=== PATIENT | female | born 1995 | race Caucasian/White ===

== ENCOUNTER 2019-03-08 18:41 | Emergency (ER) | payer SELFPAY ==
[~2019-03-08] VITALS: Ht 172.7 cm; Wt 86.2 kg
[~2019-03-08 18:41] MED LIST: BUSPIRONE HCL10 MG; KLONOPIN0.5 MG PO; LAMICTAL200 MG; SEROQUEL400 MG PO; TYLENOL WITH C1 EACH PO
--- OUTSIDE RECORDS SUMMARY | 2019-03-08 18:44 | XMS REPORT | Summary of Care ---
Author Author [facility] Organization [facility] Address Unknown Phone Unavailable Encounter MARZENA Rollins(NEETA) [id number] Date(s): 05/31/17 - 06/01/17 [facility] [address] [place] [address] [phone] Discharge Diagnosis: Headache Discharge Disposition: Home or Self Care Attending Physician: Leda Acuna DO Vital Signs 1 2 3 Most recent to oldest [Reference Range]: 175.26 cm (05/31/17 10:11 PM) Height 98.2 DegF (06/01/17 4:51 AM) 99.8 DegF *HI* (05/31/17 10:11 PM) Temperature Oral [96.4-99.1 DegF] 122/67 mmHg (06/01/17 4:51 AM) 128/73 mmHg (06/01/17 4:32 AM) 131/70 mmHg (06/01/17 12:30 AM) Blood Pressure [90-140/60-90 mmHg] 16 BRMIN (06/01/17 4:51 AM) 19 BRMIN (06/01/17 4:32 AM) 16 BRMIN (06/01/17 12:30 AM) Respiratory Rate [14-20 BRMIN] 85 bpm (06/01/17 4:51 AM) 89 bpm (06/01/17 4:32 AM) 91 bpm (06/01/17 12:30 AM) Peripheral Pulse Rate [60-100 bpm] 95.455 kg (05/31/17 10:11 PM) Weight 31.08 m2 (05/31/17 10:11 PM) Body Mass Index Problem List No data available for this section Allergies, Adverse Reactions, Alerts Substance Reaction Severity Status NKDA Active Medications dexamethasone 10 mg, Route: IVP, ONCE, Dosing Weight 95.455, kg, Priority: STAT, Start date: 4:04:00 CDT, Stop date: 06/01/17 4:04:00 CDT Start Date: 06/01/17 Stop Date: 06/01/17 Status: Completed diphenhydrAMINE 25 mg, Route: IVP, ONCE, Dosing Weight 95.455, kg, Priority: STAT, Start date: 1:31:00 CDT, Stop date: 06/01/17 1:31:00 CDT Start Date: 06/01/17 Stop Date: 06/01/17 Status: Completed ketOROLAC 15 mg, Route: IVP, Drug form: INJ, ONCE, Dosing Weight 95.455, kg, Priority: STA T, Start date: 06/01/17 2:52:00 CDT, Stop date: 06/01/17 2:52:00 CDT Start Date: 06/01/17 Stop Date: 06/01/17 Status: Completed metoclopramide 10 mg, Route: IVP, Drug form: INJ, ONCE, Dosing Weight 95.455, kg, Priority: STA T, Start date: 06/01/17 1:31:00 CDT, Stop date: 06/01/17 1:31:00 CDT Start Date: 06/01/17 Stop Date: 06/01/17 Status: Completed Saline Flush 0.9% 10 mL, Route: IVP, Drug Form: INJ, Dosing Weight 95.455, kg, PRN, PRN Line Flush , Start date: 05/31/17 22:29:00 CDT, Duration: 30 day, Stop date: 06/30/17 21:28 :00 TRADING ANALYST Notes: (Same as: BD Posiflush) Start Date: 05/31/17 Stop Date: 06/01/17 Status: Discontinued Sodium Chloride 0.9% (Bolus) IV 500 mL, Infuse Over: 1 hr, Route: IV, ONCE, Priority: STAT, Dosing Weight 95.455 kg, Start date: 06/01/17 4:04:00 CDT, Duration: 1 doses or times, Stop date: 4:04:00 CDT Start Date: 06/01/17 Stop Date: 06/01/17 Status: Completed Sodium Chloride 0.9% (Bolus) IV 1,000 mL, Infuse Over: 1 hr, Route: IV, ONCE, Priority: STAT, Dosing Weight 95.4 55 kg, Start date: 06/01/17 1:31:00 CDT, Duration: 1 doses or times, Stop date: 06/01/17 1:31:00 CDT Start Date: 06/01/17 Stop Date: 06/01/17 Status: Completed Results ELECTROLYTES Most recent to 1 oldest [Reference Range]: Sodium Lvl [135-145 138 mEq/L mEq/L] (06/01/17 1:54 AM) Potassium Lvl 3.7 mEq/L [3.5-5.1 mEq/L] (06/01/17 1:54 AM) Chloride Lvl [95-109 106 mEq/L mEq/L] (06/01/17 1:54 AM) CO2 [24-32 mEq/L] 23 mEq/L *LOW* (06/01/17 1:54 AM) AGAP [10.0-20.0 12.7 mEq/L mEq/L] (06/01/17 1:54 AM) CHEM PANEL Most recent to 1 oldest [Reference Range]: Creatinine Lvl 0.71 mg/dL [0.50-1.40 mg/dL] (06/01/17 1:54 AM) eGFR 124 mL/min/1.73m2 1 *NA* (06/01/17 1:54 AM) BUN [7-22 mg/dL] 8 mg/dL (06/01/17 1:54 AM) B/C Ratio [6-25] 11 (06/01/17 1:54 AM) Glucose Lvl [70-99 84 mg/dL mg/dL] (06/01/17 1:54 AM) Total Protein 8.7 g/dL [6.4-8.4 g/dL] *HI* (06/01/17 1:54 AM) Albumin Lvl [3.5-5.0 4.3 g/dL g/dL] (06/01/17 1:54 AM) Globulin [2.7-4.2 4.4 g/dL g/dL] *HI* (06/01/17 1:54 AM) A/G Ratio [0.7-1.6] 1.0 (06/01/17 1:54 AM) Calcium Lvl 9.4 mg/dL [8.5-10.5 mg/dL] (06/01/17 1:54 AM) Magnesium Lvl 2.0 mg/dL [1.8-2.4 mg/dL] (06/01/17 1:54 AM) ALT [0-65 unit/L] 44 unit/L (06/01/17 1:54 AM) AST [0-37 unit/L] 22 unit/L (06/01/17 1:54 AM) Alk Phos [39-136 113 unit/L unit/L] (06/01/17 1:54 AM) Bili Total [0.2-1.3 0.3 mg/dL mg/dL] (06/01/17 1:54 AM) Lipase Lvl [73-393 144 unit/L unit/L] (06/01/17 1:54 AM) 1Result Comment: The eGFR is calculated using the CKD-EPI formula. In most young, healthy individuals the eGFR will be >90 mL/min/1.73m2. The eGFR declines with age. An eGFR of 60-89 may be normal in some populations, particularly the elderly, for whom the CKD-EPI formula has not been extensively validated. Use of the eGFR is not recommended in the following populations: Individuals with unstable creatinine concentrations, including patients and those with serious co-morbid conditions. Patients with extremes in muscle mass or diet. The data above are obtained from the National Kidney Disease Education Program ( NKDEP) which additionally recommends that when the eGFR is used in patients with extremes of body mass index for purposes of drug dosing, the eGFR should be mul tiplied by the estimated BMI. URINE CHEM Most recent to 1 oldest [Reference Range]: U Preg [Negative] Negative (06/01/17 1:07 AM) URINE AND STOOL Most recent to 1 oldest [Reference Range]: UA Turbidity [Clear] Clear (06/01/17 1:07 AM) UA Color Ltyellow *NA* (06/01/17 1:07 AM) UA pH [5.0-8.0] 7.0 (06/01/17 1:07 AM) UA Spec Grav 1.004 [<=1.030] (06/01/17 1:07 AM) UA Glucose [Negative Negative mg/dL mg/dL] *NA* (06/01/17 1:07 AM) UA Blood [Negative] Negative (06/01/17 1:07 AM) UA Ketones [Negative Negative mg/dL mg/dL] *NA* (06/01/17 1:07 AM) UA Protein [Negative Negative mg/dL mg/dL] (06/01/17 1:07 AM) UA Urobilinogen <=1.0 mg/dL [0.1-1.0 mg/dL] *NA* (06/01/17 1:07 AM) UA Bili [Negative] Negative *NA* (06/01/17 1:07 AM) UA Leuk Est Negative [Negative] (06/01/17 1:07 AM) UA Nitrite Negative [Negative] (06/01/17 1:07 AM) UA RBC [0-2 /HPF] 1 /HPF (06/01/17 1:07 AM) UA Sq Epi [Few /LPF] Occasional /LPF *NA* (06/01/17 1:07 AM) HEMATOLOGY Most recent to 1 oldest [Reference Range]: WBC [3.7-10.4 K/CMM] 10.0 K/CMM (06/01/17 1:54 AM) RBC [4.20-5.40 4.94 M/CMM M/CMM] (06/01/17 1:54 AM) Hgb [12.0-16.0 g/dL] 14.0 g/dL (06/01/17 1:54 AM) Hct [36.0-48.0 %] 41.9 % (06/01/17 1:54 AM) MCV [80.0-98.0 fL] 84.8 fL (06/01/17 1:54 AM) MCH [27.0-31.0 pg] 28.4 pg (06/01/17 1:54 AM) MCHC [32.0-36.0 33.5 g/dL g/dL] (06/01/17 1:54 AM) RDW [11.5-14.5 %] 13.8 % (06/01/17 1:54 AM) Platelet [133-450 299 K/CMM K/CMM] (06/01/17 1:54 AM) MPV [7.4-10.4 fL] 8.3 fL (06/01/17 1:54 AM) Segs [45.0-75.0 %] 55.9 % (06/01/17 1:54 AM) Lymphocytes 35.2 % [20.0-40.0 %] (06/01/17 1:54 AM) Monocytes [2.0-12.0 7.0 % %] (06/01/17 1:54 AM) Eosinophils [0.0-4.0 1.1 % %] (06/01/17 1:54 AM) Basophils [0.0-1.0 0.8 % %] (06/01/17 1:54 AM) Segs-Bands # 5.6 K/CMM [1.5-8.1 K/CMM] (06/01/17 1:54 AM) Lymphocytes # 3.5 K/CMM [1.0-5.5 K/CMM] (06/01/17 1:54 AM) Monocytes # [0.0-0.8 0.7 K/CMM K/CMM] (06/01/17 1:54 AM) Eosinophils # 0.1 K/CMM [0.0-0.5 K/CMM] (06/01/17 1:54 AM) Basophils # [0.0-0.2 0.1 K/CMM K/CMM] (06/01/17 1:54 AM) Immunizations No data available for this section Procedures No data available for this section Social History Social History Type Response Smoking Status Never smoker; Exposure to Tobacco Smoke None; Cigarette Smoking Last 365 Days No; Reg Smoking Cessation Counseling No Assessment and Plan No data available for this section
--- OUTSIDE RECORDS SUMMARY | 2019-03-08 18:44 | XMS REPORT | Summary of Care ---
Author Author [facility] Organization [facility] Address Unknown Phone Unavailable Encounter MARZENA Rollins(NEETA) [id number] Date(s): 06/03/17 - 06/04/17 [facility] [address] [place] [address] [phone] Discharge Disposition: Acute Care Attending Physician: Patrick Ayala MD Admitting Physician: Patrick Ayala MD Vital Signs 1 2 3 Most recent to oldest [Reference Range]: 175.26 cm (06/03/17 11:15 PM) 175.26 cm (06/03/17 7:18 PM) Height 98.3 DegF (06/04/17 3:34 PM) 98.3 DegF (06/04/17 10:53 AM) 98.5 DegF (06/04/17 7:19 AM) Temperature Oral [96.4-99.1 DegF] 117/76 mmHg (06/04/17 3:34 PM) 114/79 mmHg (06/04/17 10:53 AM) 118/69 mmHg (06/04/17 7:19 AM) Blood Pressure [90-140/60-90 mmHg] 17 BRMIN (06/04/17 3:34 PM) 17 BRMIN (06/04/17 10:53 AM) 17 BRMIN (06/04/17 7:19 AM) Respiratory Rate [14-20 BRMIN] 89 bpm (06/04/17 3:34 PM) 94 bpm (06/04/17 10:53 AM) 116 bpm *HI* (06/04/17 7:19 AM) Peripheral Pulse Rate [60-100 bpm] 95.455 kg (06/03/17 11:15 PM) 97.727 kg (06/03/17 7:18 PM) Weight 31.08 m2 (06/03/17 11:15 PM) 31.82 m2 (06/03/17 7:18 PM) Body Mass Index Problem List Condition Effective Dates Status Health Status Informant Bipolar Resolved disorder(Confirmed) Blood clot in Resolved abdominal vein(Confirmed) Allergies, Adverse Reactions, Alerts Substance Reaction Severity Status NKDA Active Medications acetaminophen 650 mg, 2 tab, Route: PO, Drug form: TAB, Q4H, Dosing Weight 97.727, kg, PRN Nahid n 1-3/Temp > 99.5 F, Start date: 06/03/17 22:54:00 CDT, Duration: 30 day, Stop date: 07/03/17 22:53:00 GROUP DIRECTOR Notes: Do not exceed 4 gm/day. (Same as: Tylenol) Start Date: 06/03/17 Stop Date: 06/04/17 Status: Discontinued aspirin 325 mg, 1 tab, Route: PO, Drug form: TAB, ONCE, Dosing Weight 97.727, kg, Priori ty: STAT, Start date: 06/03/17 20:47:00 CDT, Stop date: 06/03/17 20:47:00 CDT Notes: Take with food. Start Date: 06/03/17 Stop Date: 06/03/17 Status: Completed aspirin 81 mg tablet, enteric coated 81 mg, 1 tab, Route: PO, Drug form: ECTAB, Daily, Dosing Weight 97.727, kg, Star t date: 06/04/17 9:00:00 CDT, Duration: 30 day, Stop date: 07/03/17 9:00:00 GROUP DIRECTOR Notes: Do not crush or chew.(Same As: Ecotrin) Start Date: 06/04/17 Stop Date: 06/04/17 Status: Discontinued clonazePAM 0.5 mg, 1 tab, Route: PO, Drug form: TAB, BID, Dosing Weight 95.455, kg, PRN Anx iety, Start date: 06/04/17 4:05:00 CDT, Duration: 30 day, Stop date: 07/04/17 4: 04:00 GROUP DIRECTOR Notes: (Same As: KlonoPIN) Start Date: 06/04/17 Stop Date: 06/04/17 Status: Discontinued clonazePAM 0.5 mg, Route: PO, Drug form: TAB, BID, Dosing Weight 95.455, kg, PRN Anxiety, S tart date: 06/04/17 15:24:00 CDT, Duration: 30 day, Stop date: 07/04/17 15:23:00 GROUP DIRECTOR Start Date: 06/04/17 Stop Date: 06/04/17 Status: Deleted clonazePAM 0.5 mg oral tablet 0.5 mg=1 tab, PO, BID, PRN Anxiety, first dose now, 0 Refill(s) Start Date: 06/03/17 Status: Suspended Mylicon 160 mg, 2 tab, Route: CHEW, Drug form: CHEWTAB, TID, Dosing Weight 95.455, kg, P RN Gas, Start date: 06/04/17 10:28:00 CDT, Duration: 30 day, Stop date: 07/04/17 10:27:00 GROUP DIRECTOR Notes: (Same as: Mylicon) Start Date: 06/04/17 Stop Date: 06/04/17 Status: Discontinued [place] 5/325 oral tablet 1 tab, Route: PO, Drug Form: TAB, Dosing Weight 95.455, kg, Q4H, PRN Pain Score 1-3, NOW, Start date: 06/04/17 0:56:00 CDT, Duration: 30 day, Stop date: 7 0:55:00 GROUP DIRECTOR Notes: (Same as: [place] 325/5) Do not exceed 4gm/day of acetaminophen. Start Date: 06/04/17 Stop Date: 06/04/17 Status: Discontinued Saline Flush 0.9% 10 ml, Route: IVP, Drug Form: INJ, Dosing Weight 97.727, kg, PRN, PRN Line Flush , Start date: 06/03/17 22:54:00 CDT, Duration: 30 day, Stop date: 07/03/17 21:53 :00 GROUP DIRECTOR Notes: (Same as: BD Posiflush) Start Date: 06/03/17 Stop Date: 06/04/17 Status: Discontinued Saline Flush 0.9% 10 ml, Route: IVP, Drug Form: INJ, Dosing Weight 97.727, kg, Q12H, Start date: 1 9:00:00 CDT, Duration: 30 day, Stop date: 07/03/17 21:00:00 GROUP DIRECTOR Notes: (Same as: BD Posiflush) Start Date: 06/04/17 Stop Date: 06/04/17 Status: Discontinued Saline Flush 0.9% 10 ml, Route: IVP, Drug Form: INJ, Dosing Weight 97.727, kg, Q12H, Start date: 1 21:00:00 CDT, Duration: 30 day, Stop date: 07/03/17 9:00:00 GROUP DIRECTOR Notes: (Same as: BD Posiflush) Start Date: 06/03/17 Stop Date: 06/04/17 Status: Discontinued Saline Flush 0.9% 10 ml, Route: IVP, Drug Form: INJ, Dosing Weight 97.727, kg, PRN, PRN Line Flush , Start date: 06/03/17 20:18:00 CDT, Duration: 30 day, Stop date: 07/03/17 19:17 :00 GROUP DIRECTOR Start Date: 06/03/17 Stop Date: 06/03/17 Status: Deleted Saline Flush 0.9% 10 mL, Route: IVP, Drug Form: INJ, Dosing Weight 95.455, kg, PRN, PRN Line Flush , Start date: 06/03/17 19:24:00 CDT, Duration: 30 day, Stop date: 07/03/17 18:23 :00 GROUP DIRECTOR Notes: (Same as: BD Posiflush) Start Date: 06/03/17 Stop Date: 06/04/17 Status: Discontinued SEROquel 400 mg, 4 tab, Route: PO, Drug form: TAB, Bedtime, Dosing Weight 95.455, kg, PRN Insomnia, Priority: NOW, Start date: 06/04/17 3:47:00 CDT, Duration: 30 day, St op date: 07/04/17 3:46:00 GROUP DIRECTOR Notes: (Same as: SEROquel) Start Date: 06/04/17 Stop Date: 06/04/17 Status: Discontinued SEROquel 400 mg, 4 tab, Route: PO, Drug form: TAB, Bedtime, Dosing Weight 95.455, kg, Sta rt date: 06/04/17 21:00:00 CDT, Duration: 30 day, Stop date: 07/03/17 21:00:[address] Notes: (Same as: SEROquel) Start Date: 06/04/17 Stop Date: 06/04/17 Status: Canceled SEROquel 400 mg oral tablet 400 mg=1 tab, PO, Bedtime, 0 Refill(s) Start Date: 06/03/17 Status: Suspended Sodium Chloride 0.9% (Bolus) IV 1,000 mL, 1000 ml/hr, Infuse Over: 1 hr, Route: IV, 1,000, Drug form: INJ, ONCE, Priority: STAT, Dosing Weight 97.727 kg, Start date: 06/03/17 19:49:00 CDT, Dur ation: 1 doses or times, Stop date: 06/03/17 19:49:00 CDT Start Date: 06/03/17 Stop Date: 06/03/17 Status: Completed Results ELECTROLYTES Most recent to 1 2 oldest [Reference Range]: Sodium Lvl [135-145 140 mEq/L 140 mEq/L mEq/L] (06/04/17 3:01 AM) (06/03/17 7:45 PM) Potassium Lvl 3.3 mEq/L 3.4 mEq/L [3.5-5.1 mEq/L] *LOW* *LOW* (06/04/17 3:01 AM) (06/03/17 7:45 PM) Chloride Lvl [95-109 110 mEq/L 105 mEq/L mEq/L] *HI* (06/03/17 7:45 PM) (06/04/17 3:01 AM) CO2 [24-32 mEq/L] 18 mEq/L 22 mEq/L *LOW* *LOW* (06/04/17 3:01 AM) (06/03/17 7:45 PM) AGAP [10.0-20.0 15.3 mEq/L 16.4 mEq/L mEq/L] (06/04/17 3:01 AM) (06/03/17 7:45 PM) CHEM PANEL Most recent to 1 2 oldest [Reference Range]: Creatinine Lvl 0.70 mg/dL 0.73 mg/dL [0.50-1.40 mg/dL] (06/04/17 3:01 AM) (06/03/17 7:45 PM) eGFR 126 mL/min/1.73m2 1 120 mL/min/1.73m2 2 *NA* *NA* (06/04/17 3:01 AM) (06/03/17 7:45 PM) BUN [7-22 mg/dL] 6 mg/dL 8 mg/dL *LOW* (06/03/17 7:45 PM) (06/04/17 3:01 AM) B/C Ratio [6-25] 11 (06/03/17 7:45 PM) Glucose Lvl [70-99 124 mg/dL 90 mg/dL mg/dL] *HI* (06/03/17 7:45 PM) (06/04/17 3:01 AM) Total Protein 8.7 g/dL [6.4-8.4 g/dL] *HI* (06/03/17 7:45 PM) Albumin Lvl [3.5-5.0 4.2 g/dL g/dL] (06/03/17 7:45 PM) Globulin [2.7-4.2 4.5 g/dL g/dL] *HI* (06/03/17 7:45 PM) A/G Ratio [0.7-1.6] 0.9 (06/03/17 7:45 PM) Calcium Lvl 8.8 mg/dL 9.5 mg/dL [8.5-10.5 mg/dL] (06/04/17 3:01 AM) (06/03/17 7:45 PM) ALT [0-65 unit/L] 88 unit/L *HI* (06/03/17 7:45 PM) AST [0-37 unit/L] 34 unit/L (06/03/17 7:45 PM) Alk Phos [39-136 113 unit/L unit/L] (06/03/17 7:45 PM) Bili Total [0.2-1.3 0.5 mg/dL mg/dL] (06/03/17 7:45 PM) 1Result Comment: The eGFR is calculated using [...] be mul tiplied by the estimated BMI. 2Result Comment: The eGFR is calculated using the [...] be mul tiplied by the estimated BMI. CARDIAC ENZYMES Most recent to 1 2 oldest [Reference Range]: Total CK [12-191 49 unit/L unit/L] (06/03/17 7:45 PM) CK MB [0.5-3.6 0.5 ng/mL ng/mL] (06/03/17 7:45 PM) CK MB Index 1.0 [0.0-2.5] (06/03/17 7:45 PM) Troponin-I <0.02 ng/mL <0.02 ng/mL [0.00-0.40 ng/mL] (06/04/17 3:01 AM) (06/03/17 7:45 PM) LIPIDS Most recent to 1 2 oldest [Reference Range]: CHD Risk [3.90-5.80] 3.65 *LOW* (06/04/17 3:01 AM) Chol [<=199 mg/dL] 146 mg/dL (06/04/17 3:01 AM) Trig [<=149 mg/dL] 81 mg/dL (06/04/17 3:01 AM) HDL [>=61 mg/dL] 40 mg/dL *LOW* (06/04/17 3:01 AM) LDL (Calculated) 90 mg/dL [<=99 mg/dL] (06/04/17 3:01 AM) VLDL 16 *NA* (06/04/17 3:01 AM) SPECIAL CHEMISTRY Most recent to 1 2 oldest [Reference Range]: Hgb A1C [<=5.6 %] 5.0 % (06/04/17 3:01 AM) DRUG SCREEN Most recent to 1 2 oldest [Reference Range]: U Amph Scr Negative [Negative] *NA* (06/03/17 8:31 PM) U Maya Scr Negative [Negative] *NA* (06/03/17 8:31 PM) U Benzodia Scr Negative [Negative] *NA* (06/03/17 8:31 PM) U Cocaine Scr Negative [Negative] *NA* (06/03/17 8:31 PM) U Opiate Scr Negative [Negative] *NA* (06/03/17 8:31 PM) U Phencyc Scr Negative [Negative] *NA* (06/03/17 8:31 PM) U Cannab Scr Negative [Negative] *NA* (06/03/17 8:31 PM) UDS Note See Note *NA* (06/03/17 8:31 PM) ENDOCRINOLOGY Most recent to 1 2 oldest [Reference Range]: S Preg [Negative] Negative *NA* (06/03/17 7:45 PM) URINE AND STOOL Most recent to 1 2 oldest [Reference Range]: UA Turbidity [Clear] Clear (06/03/17 8:31 PM) UA Color Ltyellow *NA* (06/03/17 8:31 PM) UA pH [5.0-8.0] 6.0 (06/03/17 8:31 PM) UA Spec Grav 1.005 [<=1.030] (06/03/17 8:31 PM) UA Glucose [Negative Negative mg/dL mg/dL] *NA* (06/03/17 8:31 PM) UA Blood [Negative] Moderate *ABN* (06/03/17 8:31 PM) UA Ketones [Negative Trace mg/dL mg/dL] *ABN* (06/03/17 8:31 PM) UA Protein [Negative Negative mg/dL mg/dL] (06/03/17 8:31 PM) UA Urobilinogen <=1.0 mg/dL [0.1-1.0 mg/dL] *NA* (06/03/17 8:31 PM) UA Bili [Negative] Negative *NA* (06/03/17 8:31 PM) UA Leuk Est Negative [Negative] (06/03/17 8:31 PM) UA Nitrite Negative [Negative] (06/03/17 8:31 PM) UA WBC [0-5 /HPF] 2 /HPF (06/03/17 8:31 PM) UA RBC [0-2 /HPF] <1 /HPF (06/03/17 8:31 PM) UA Sq Epi [Few /LPF] Occasional /LPF *NA* (06/03/17 8:31 PM) HEMATOLOGY Most recent to 1 2 oldest [Reference Range]: WBC [3.7-10.4 K/CMM] 12.0 K/CMM *HI* (06/03/17 7:45 PM) RBC [4.20-5.40 4.77 M/CMM M/CMM] (06/03/17 7:45 PM) Hgb [12.0-16.0 g/dL] 13.6 g/dL (06/03/17 7:45 PM) Hct [36.0-48.0 %] 40.4 % (06/03/17 7:45 PM) MCV [80.0-98.0 fL] 84.6 fL (06/03/17 7:45 PM) MCH [27.0-31.0 pg] 28.4 pg (06/03/17 7:45 PM) MCHC [32.0-36.0 33.6 g/dL g/dL] (06/03/17 7:45 PM) RDW [11.5-14.5 %] 13.5 % (06/03/17 7:45 PM) Platelet [133-450 341 K/CMM K/CMM] (06/03/17 7:45 PM) MPV [7.4-10.4 fL] 8.0 fL (06/03/17 7:45 PM) Segs [45.0-75.0 %] 70.5 % (06/03/17 7:45 PM) Lymphocytes 21.0 % [20.0-40.0 %] (06/03/17 7:45 PM) Monocytes [2.0-12.0 7.8 % %] (06/03/17 7:45 PM) Eosinophils [0.0-4.0 0.2 % %] (06/03/17 7:45 PM) Basophils [0.0-1.0 0.5 % %] (06/03/17 7:45 PM) Segs-Bands # 8.5 K/CMM [1.5-8.1 K/CMM] *HI* (06/03/17 7:45 PM) Lymphocytes # 2.5 K/CMM [1.0-5.5 K/CMM] (06/03/17 7:45 PM) Monocytes # [0.0-0.8 0.9 K/CMM K/CMM] *HI* (06/03/17 7:45 PM) Basophils # [0.0-0.2 0.1 K/CMM K/CMM] (06/03/17 7:45 PM) PT [12.0-14.7 13.6 seconds seconds] (06/03/17 7:45 PM) INR [0.85-1.17] 1.04 (06/03/17 7:45 PM) PTT [22.9-35.8 29.5 seconds seconds] (06/03/17 7:45 PM) VIRAL - SEROLOGY Most recent to 1 2 oldest [Reference Range]: Influ A [Negative] Negative (06/03/17 8:31 PM) Influ B [Negative] Negative (06/03/17 8:31 PM) Immunizations No data available for this section Procedures Procedure Date Related Diagnosis Body Site Cholecystectomy Ligament operation Social History Social History Type Response Substance Abuse Use: None. Sexual Sexually active: Yes. Number of lifetime partners 1. Partner with STD? No. Uses condoms: No. History of sexual abuse: No. Sex Mutually Satisfying: Yes. Change in Libido: No. Self Breast Exam No. Menstrual Period Started: No. Exercise Exercise duration: 30. Exercise frequency: Daily. Self assessment: Fair condition. Exercise type: Walking. Employment/School Status: Employed. Alcohol Current, Frequency: 1-2 times per month. Smoking Status Never smoker; Exposure to Tobacco Smoke None; Cigarette Smoking Last 365 Days No; Reg Smoking Cessation Counseling Yes Assessment and Plan Extracted from: Title: Clinical Document Author: Patrick Ayala MD Date: 06/04/17 Progress Note - Daily [facility] Completed: May, 15:26 by Patrick Ayala MD RM: CCDU - 15, SE CCDUWKATINA OBREGON [id number] (: 1995) F Attending: Patrick Ayala MDPhone: Service: Internal Medicine Reason for Admission: BILATERAL LEG WEAKNESS/ N V/ACUTE DIARRHEA Working DRG: Signs & symptoms w/o [facility] Code status: None Specified=FULL CODECurrent diet: Isolation: None Documented Allergies: NKDA SUBJECTIVE OBJECTIVE 24hr Labs 06/04 0301 Gckt283 Trig81 HDL40 L LDL (Calculated)90 VLDL16 CHD Risk3.65 L Troponin-I<0.02 Hgb A1C5.0 Glucose Jki688 H BUN6 L Creatinine Lvl0.70 Sodium Sqr459 Potassium Lvl3.3 L Chloride Jyr166 H CO218 L AGAP15.3 Calcium Lvl8.8 sURH422 06/03 2031 U Amph ScrNegative U Maya ScrNegative U Benzodia ScrNegative U Cannab ScrNegative U Cocaine ScrNegative U Opiate ScrNegative U Phencyc ScrNegative UDS NoteSee Note Influ ANegative Influ BNegative UA ColorLtyellow UA TurbidityClear UA Spec Grav1.005 UA pH6.0 UA ProteinNegative UA GlucoseNegative UA KetonesTrace UA BiliNegative UA BloodModerate UA Urobilinogen<=1.0 UA NitriteNegative UA Leuk EstNegative UA RBC<1 UA WBC2 UA Sq EpiOccasional 06/03 1945 S PregNegative Sodium Guh223 Potassium Lvl3.4 L Chloride Gnz568 CO222 L AGAP16.4 Glucose Lvl90 Creatinine Lvl0.73 BUN8 B/C Ratio11 Total Protein8.7 H Albumin Lvl4.2 Globulin4.5 H A/G Ratio0.9 Calcium Lvl9.5 ALT88 H AST34 Alk Hcyi635 Bili Total0.5 qRCK282 Total CK49 Troponin-I<0.02 CK MB0.5 CK MB Index1.0 WBC12.0 H RBC4.77 Hgb13.6 Hct40.4 MCV84.6 MCH28.4 MCHC33.6 RDW13.5 Hgjdwhgd619 MPV8.0 Segs70.5 Monocytes7.8 Zforvaorxsx71.0 Eosinophils0.2 Basophils0.5 Segs-Bands #8.5 H Lymphocytes #2.5 Monocytes #0.9 H Basophils #0.1 PT13.6 INR1.04 PTT29.5 06/034 POC Performing LocatioSee Note Glucose POC97 [place] still necessary (Yes/No): Line still necessary (Yes/No): VitalsTmp(F)HamymQRDWSpA5ZSX9 06/04 10:5398.245934/107336--- 06/04 07:3412.8097431/733114--- 06/04 03:1597.886084/458617--- 06/04 01:53----70 06/03 23:1898.3---144/3993697 21% 24 Hr Tmax: 99.7F (37.61c) at 06/03 19:18Vital Signs are the last 5 in the past 48 hours. DateWt(kg)Wt(lb)Ht(cm)Ht(in)Method 06/03 (initial) 97.73 215.00Estimated .26 69.00Stated I&ORecordInOutBal 05/2324hr Tot 10 700 -690 05/2224hr Tot 1020 1000 20 Medications (13) Active Scheduled Meds (4): 06/04/17 QUEtiapine (SEROquel) 400 mg PO Bedtime 06/04/17 aspirin (aspirin 81 mg tablet, enteric coated) 81 mg PO Daily 06/03/17 sodium chloride (Saline Flush 0.9%) 10 ml IVP Q12H 06/04/17 sodium chloride (Saline Flush 0.9%) 10 ml IVP Q12H Unscheduled Meds: None PRN Meds (7): 06/04/17 QUEtiapine (SEROquel) 400 mg PO Bedtime 06/04/17 acetaminophen-hydrocodone ([place] 5/325 oral tablet) 1 tab PO Q4H 06/03/17 acetaminophen 650 mg PO Q4H 06/04/17 clonazePAM 0.5 mg PO BID 06/04/17 clonazePAM 0.5 mg PO BID 06/04/17 simethicone (Mylicon) 160 mg CHEW TID 06/03/17 sodium chloride (Saline Flush 0.9%) 10 ml IVP PRN One Time Meds (2): 06/03/17 (Completed) Sodium Chloride 0.9% IV (Sodium Chloride 0.9% (Bolus) IV) 1,000 mL IV ONCE 1000 ml/hr 06/03/17 (Completed) aspirin 325 mg PO ONCE Continuous Infusions: None ASSESSMENT & EXAM PLAN & TREATMENT DIAGNOSES & PROBLEMS [id number] Ready for Discharge (Yes/No)? TEACHING ATTESTATION
--- OUTSIDE RECORDS SUMMARY | 2019-03-08 18:44 | XMS REPORT | Continuity of Care Document ---
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 Phone [employer] [facility] Unavailable Unavailable Problems Problem Status Onset Date Classification Date Reported Comments Source LEG PAIN Active 06/03/2017 [facility] BILATERAL LEG WEAKNESS/ N V/ACUTE DIARRH Active 06/03/2017 [facility] Discharge Diagnosis: Headache 06/01/2017 06/04/2017 [facility] ARM PAIN/ LEG PAIN/ CP Active 05/31/2017 [facility] Bipolar disorder Resolved Problem 06/07/2017 [facility] Blood clot in abdominal vein Resolved Problem 06/07/2017 [facility] WEAKNESS Active [facility] Medications Medication Details Route Status Patient Instructions Ordering Provider Order Date Source Seroquel 400 mg, 4 tab, Route: PO, Drug form: TAB, Bedtime, Dosing Weight 95.455, kg, Start date: 06/04/17 21:00:00 CDT, Duration: 30 day, Stop date: 07/03/17 21:00:00 CSTNotes: (Same as: SEROquel) Inactive 06/05/2017 [facility] Clonazepam 0.5 mg, Route: PO, Drug form: TAB, BID, Dosing Weight 95.455, kg, PRN Anxiety, Start date: 06/04/17 15:24:00 CDT, Duration: 30 day, Stop date: 07/04/17 15:23:00 [employer] Inactive 06/04/2017 [facility] Mylicon 160 mg, 2 tab, Route: CHEW, Drug form: CHEWTAB, TID, Dosing Weight 95.455, kg, PRN Gas, Start date: 06/04/17 10:28:00 CDT, Duration: 30 day, Stop date: 07/04/17 10:27:00 CSTNotes: (Same as: Mylicon) Inactive 06/04/2017 [facility] Saline Flush 0.9% 10 ml, Route: IVP, Drug Form: INJ, Dosing Weight 97.727, kg, Q12H, Start date: 06/04/17 9:00:00 CDT, Duration: 30 day, Stop date: 07/03/17 21:00:00 CSTNotes: (Same as: BD Posiflush) Inactive 06/04/2017 [facility] aspirin 81 mg tablet, enteric coated 81 mg, 1 tab, Route: PO, Drug form: ECTAB, Daily, Dosing Weight 97.727, kg, Start date: 06/04/17 9:00:00 CDT, Duration: 30 day, Stop date: 07/03/17 9:00:00 CSTNotes: Do not crush or chew. (Same As: Ecotrin) Inactive 06/04/2017 [facility] Clonazepam 0.5 mg, 1 tab, Route: PO, Drug form: TAB, BID, Dosing Weight 95.455, kg, PRN Anxiety, Start date: 06/04/17 4:05:00 CDT, Duration: 30 day, Stop date: 07/04/17 4:04:00 CSTNotes: (Same As: KlonoPIN) Inactive 06/04/2017 [facility] Seroquel 400 mg, 4 tab, Route: PO, Drug form: TAB, Bedtime, Dosing Weight 95.455, kg, PRN Insomnia, Priority: NOW, Start date: 06/04/17 3:47:00 CDT, Duration: 30 day, Stop date: 07/04/17 3:46:00 CSTNotes: (Same as: SEROquel) Inactive 06/04/2017 [facility] Acetaminophen 325 MG / Hydrocodone Bitartrate 5 MG Oral Tablet [[place] 5/325] 1 tab, Route: PO, Drug Form: TAB, Dosing Weight 95.455, kg, Q4H, PRN Pain Score 1-3, NOW, Start date: 06/04/17 0:56:00 CDT, Duration: 30 day, Stop date: 07/04/17 0:55:00 CSTNotes: (Same as: [place] 325/5) Do not exceed 4gm/day of acetaminophen. Inactive 06/04/2017 [facility] Saline Flush 0.9% 10 ml, Route: IVP, Drug Form: INJ, Dosing Weight 97.727, kg, PRN, PRN Line Flush, Start date: 06/03/17 22:54:00 CDT, Duration: 30 day, Stop date: 07/03/17 21:53:00 CSTNotes: (Same as: BD Posiflush) No Longer Active 06/04/2017 [facility] Acetaminophen 650 mg, 2 tab, Route: PO, Drug form: TAB, Q4H, Dosing Weight 97.727, kg, PRN Pain 1-3/Temp > 99.5 F, Start date: 06/03/17 22:54:00 CDT, Duration: 30 day, Stop date: 07/03/17 22:53:00 CSTNotes: Do not exceed 4 gm/day. (Same as: Tylenol) No Longer Active 06/04/2017 [facility] clonazePAM 0.5 mg oral tablet 0.5 mg=1 tab, PO, BID, PRN Anxiety, first dose now, 0 Refill(s) On Hold 06/04/2017 [facility] quetiapine 400 MG Oral Tablet [Seroquel] 400 mg=1 tab, PO, Bedtime, 0 Refill(s) On Hold 06/04/2017 [facility] Saline Flush 0.9% 10 ml, Route: IVP, Drug Form: INJ, Dosing Weight 97.727, kg, Q12H, Start date: 06/03/17 21:00:00 CDT, Duration: 30 day, Stop date: 07/03/17 9:00:00 CSTNotes: (Same as: BD Posiflush) No Longer Active 06/04/2017 [facility] Aspirin 325 mg, 1 tab, Route: PO, Drug form: TAB, ONCE, Dosing Weight 97.727, kg, Priority: STAT, Start date: 06/03/17 20:47:00 CDT, Stop date: 06/03/17 20:47:00 CDTNotes: Take with food. Inactive 06/04/2017 [facility] Saline Flush 0.9% 10 ml, Route: IVP, Drug Form: INJ, Dosing Weight 97.727, kg, PRN, PRN Line Flush, Start date: 06/03/17 20:18:00 CDT, Duration: 30 day, Stop date: 07/03/17 19:17:00 [employer] Inactive 06/04/2017 [facility] Sodium Chloride 0.9% (Bolus) IV 1,000 mL, 1000 ml/hr, Infuse Over: 1 hr, Route: IV, 1,000, Drug form: INJ, ONCE, Priority: STAT, Dosing Weight 97.727 kg, Start date: 06/03/17 19:49:00 CDT, Duration: 1 doses or times, Stop date: 06/03/17 19:49:00 CDT Inactive 06/04/2017 [facility] Saline Flush 0.9% 10 mL, Route: IVP, Drug Form: INJ, Dosing Weight 95.455, kg, PRN, PRN Line Flush, Start date: 06/03/17 19:24:00 CDT, Duration: 30 day, Stop date: 07/03/17 18:23:00 CSTNotes: (Same as: BD Posiflush) No Longer Active 06/04/2017 [facility] Sodium Chloride 0.9% (Bolus) IV 500 mL, Infuse Over: 1 hr, Route: IV, ONCE, Priority: STAT, Dosing Weight 95.455 kg, Start date: 06/01/17 4:04:00 CDT, Duration: 1 doses or times, Stop date: 06/01/17 4:04:00 CDT Inactive 06/01/2017 [facility] Dexamethasone 10 mg, Route: IVP, ONCE, Dosing Weight 95.455, kg, Priority: STAT, Start date: 06/01/17 4:04:00 CDT, Stop date: 06/01/17 4:04:00 CDT Inactive 06/01/2017 [facility] Ketorolac 15 mg, Route: IVP, Drug form: INJ, ONCE, Dosing Weight 95.455, kg, Priority: STAT, Start date: 06/01/17 2:52:00 CDT, Stop date: 06/01/17 2:52:00 CDT Inactive 06/01/2017 [facility] Diphenhydramine 25 mg, Route: IVP, ONCE, Dosing Weight 95.455, kg, Priority: STAT, Start date: 06/01/17 1:31:00 CDT, Stop date: 06/01/17 1:31:00 CDT Inactive 06/01/2017 [facility] Metoclopramide 10 mg, Route: IVP, Drug form: INJ, ONCE, Dosing Weight 95.455, kg, Priority: STAT, Start date: 06/01/17 1:31:00 CDT, Stop date: 06/01/17 1:31:00 CDT Inactive 06/01/2017 [facility] Sodium Chloride 0.9% (Bolus) IV 1,000 mL, Infuse Over: 1 hr, Route: IV, ONCE, Priority: STAT, Dosing Weight 95.455 kg, Start date: 06/01/17 1:31:00 CDT, Duration: 1 doses or times, Stop date: 06/01/17 1:31:00 CDT Inactive 06/01/2017 [facility] Saline Flush 0.9% 10 mL, Route: IVP, Drug Form: INJ, Dosing Weight 95.455, kg, PRN, PRN Line Flush, Start date: 05/31/17 22:29:00 CDT, Duration: 30 day, Stop date: 06/30/17 21:28:00 CSTNotes: (Same as: BD Posiflush) No Longer Active 06/01/2017 [facility] Allergies, Adverse Reactions, Alerts No Known Medication Allergies Immunizations No Data Provided for This Section Results Order Name Results Value Reference Range Date Interpretation Comments Source CARDIAC ENZYMES Troponin-I <0.02 0.00 - 0.40 06/04/2017 [facility] CHEM PANEL eGFR 126 06/04/2017 Result Comment: The eGFR is calculated using the [...] from the National Kidney Disease Education Program (NKDEP) which additionally recommends that when the eGFR is used in patients with extremes of body mass index for purposes of drug dosing, the eGFR should be multiplied by the estimated BMI. [facility] CHEM PANEL Chloride Lvl 110 95 - 109 06/04/2017 [facility] CHEM PANEL CO2 18 24 - 32 06/04/2017 [facility] CHEM PANEL Potassium Lvl 3.3 3.5 - 5.1 06/04/2017 [facility] CHEM PANEL Sodium Lvl 140 135 - 145 06/04/2017 [facility] CHEM PANEL Calcium Lvl 8.8 8.5 - 10.5 06/04/2017 [facility] CHEM PANEL AGAP 15.3 10.0 - 20.0 06/04/2017 [facility] CHEM PANEL Creatinine Lvl 0.70 0.50 - 1.40 06/04/2017 [facility] CHEM PANEL BUN 6 7 - 22 06/04/2017 [facility] CHEM PANEL Glucose Lvl 124 70 - 99 06/04/2017 [facility] LIPIDS LDL (Calculated) 90 <=99 mg/dL 06/04/2017 [facility] LIPIDS VLDL 16 06/04/2017 [facility] LIPIDS Trig 81 <=149 mg/dL 06/04/2017 [facility] LIPIDS Chol 146 <=199 mg/dL 06/04/2017 [facility] LIPIDS HDL 40 >=61 mg/dL 06/04/2017 [facility] LIPIDS CHD Risk 3.65 3.90 - 5.80 06/04/2017 [facility] SPECIAL CHEMISTRY Hgb A1C 5.0 <=5.6 % 06/04/2017 [facility] DRUG SCREEN UDS Note See Note *NA* (06/03/17 8:31 PM) 06/04/2017 [facility] DRUG SCREEN U Benzodia Scr Negative *NA* (06/03/17 8:31 PM) Negative 06/04/2017 [facility] DRUG SCREEN U Maya Scr Negative *NA* (06/03/17 8:31 PM) Negative 06/04/2017 [facility] DRUG SCREEN U Amph Scr Negative *NA* (06/03/17 8:31 PM) Negative 06/04/2017 [facility] DRUG SCREEN U Phencyc Scr Negative *NA* (06/03/17 8:31 PM) Negative 06/04/2017 [facility] DRUG SCREEN U Cocaine Scr Negative *NA* (06/03/17 8:31 PM) Negative 06/04/2017 [facility] DRUG SCREEN U Cannab Scr Negative *NA* (06/03/17 8:31 PM) Negative 06/04/2017 [facility] DRUG SCREEN U Opiate Scr Negative *NA* (06/03/17 8:31 PM) Negative 06/04/2017 [facility] URINE AND STOOL UA Urobilinogen <=1.0 mg/dL 0.1 - 1.0 06/04/2017 [facility] URINE AND STOOL UA Color Ltyellow 06/04/2017 [facility] URINE AND STOOL UA RBC <1 0 - 2 06/04/2017 [facility] URINE AND STOOL UA WBC 2 0 - 5 06/04/2017 [facility] URINE AND STOOL UA Sq Epi Occasional /LPF Few /LPF 06/04/2017 [facility] URINE AND STOOL UA Blood Moderate *ABN* (06/03/17 8:31 PM) Negative 06/04/2017 [facility] URINE AND STOOL UA Bili Negative *NA* (06/03/17 8:31 PM) Negative 06/04/2017 [facility] URINE AND STOOL UA Leuk Est Negative (06/03/17 8:31 PM) Negative 06/04/2017 [facility] URINE AND STOOL UA Nitrite Negative (06/03/17 8:31 PM) Negative 06/04/2017 [facility] URINE AND STOOL UA Turbidity Clear (06/03/17 8:31 PM) Clear 06/04/2017 [facility] URINE AND STOOL UA Ketones Trace mg/dL Negative mg/dL 06/04/2017 [facility] URINE AND STOOL UA Spec Grav 1.005 <=1.030 06/04/2017 [facility] URINE AND STOOL UA Glucose Negative mg/dL Negative mg/dL 06/04/2017 [facility] URINE AND STOOL UA Protein Negative mg/dL Negative mg/dL 06/04/2017 [facility] URINE AND STOOL UA pH 6.0 5.0 - 8.0 06/04/2017 [facility] VIRAL - SEROLOGY Influ B Negative (06/03/17 8:31 PM) Negative 06/04/2017 [facility] VIRAL - SEROLOGY Influ A Negative (06/03/17 8:31 PM) Negative 06/04/2017 [facility] CARDIAC ENZYMES CK MB Index 1.0 0.0 - 2.5 06/04/2017 [facility] CARDIAC ENZYMES Troponin-I <0.02 0.00 - 0.40 06/04/2017 [facility] CARDIAC ENZYMES Total CK 49 12 - 191 06/04/2017 [facility] CARDIAC ENZYMES CK MB 0.5 0.5 - 3.6 06/04/2017 [facility] CHEM PANEL eGFR 120 06/04/2017 Result Comment: The eGFR is calculated using the [...] from the National Kidney Disease Education Program (NKDEP) which additionally recommends that when the eGFR is used in patients with extremes of body mass index for purposes of drug dosing, the eGFR should be multiplied by the estimated BMI. [facility] CHEM PANEL B/C Ratio 11 6 - 25 06/04/2017 [facility] CHEM PANEL A/G Ratio 0.9 0.7 - 1.6 06/04/2017 [facility] CHEM PANEL Globulin 4.5 2.7 - 4.2 06/04/2017 [facility] CHEM PANEL BUN 8 7 - 22 06/04/2017 [facility] CHEM PANEL Glucose Lvl 90 70 - 99 06/04/2017 [facility] CHEM PANEL Sodium Lvl 140 135 - 145 06/04/2017 [facility] CHEM PANEL Creatinine Lvl 0.73 0.50 - 1.40 06/04/2017 [facility] CHEM PANEL Potassium Lvl 3.4 3.5 - 5.1 06/04/2017 [facility] CHEM PANEL ALT 88 0 - 65 06/04/2017 [facility] CHEM PANEL Calcium Lvl 9.5 8.5 - 10.5 06/04/2017 [facility] CHEM PANEL CO2 22 24 - 32 06/04/2017 [facility] CHEM PANEL Total Protein 8.7 6.4 - 8.4 06/04/2017 [facility] CHEM PANEL Chloride Lvl 105 95 - 109 06/04/2017 [facility] CHEM PANEL Albumin Lvl 4.2 3.5 - 5.0 06/04/2017 [facility] CHEM PANEL AGAP 16.4 10.0 - 20.0 06/04/2017 [facility] CHEM PANEL Bili Total 0.5 0.2 - 1.3 06/04/2017 [facility] CHEM PANEL Alk Phos 113 39 - 136 06/04/2017 [facility] CHEM PANEL AST 34 0 - 37 06/04/2017 [facility] ENDOCRINOLOGY S Preg Negative *NA* (06/03/17 7:45 PM) Negative 06/04/2017 [facility] HEMATOLOGY Basophils # 0.1 0.0 - 0.2 06/04/2017 [facility] HEMATOLOGY Lymphocytes # 2.5 1.0 - 5.5 06/04/2017 [facility] HEMATOLOGY Monocytes # 0.9 0.0 - 0.8 06/04/2017 [facility] HEMATOLOGY Basophils 0.5 0.0 - 1.0 06/04/2017 [facility] HEMATOLOGY Segs-Bands # 8.5 1.5 - 8.1 06/04/2017 [facility] HEMATOLOGY Monocytes 7.8 2.0 - 12.0 06/04/2017 [facility] HEMATOLOGY Eosinophils 0.2 0.0 - 4.0 06/04/2017 [facility] HEMATOLOGY Lymphocytes 21.0 20.0 - 40.0 06/04/2017 [facility] HEMATOLOGY Segs 70.5 45.0 - 75.0 06/04/2017 [facility] MCV 84.6 80.0 - 98.0 06/04/2017 [facility] MCHC 33.6 32.0 - 36.0 06/04/2017 [facility] MCH 28.4 27.0 - 31.0 06/04/2017 [facility] Hgb 13.6 12.0 - 16.0 06/04/2017 [facility] Hct 40.4 36.0 - 48.0 06/04/2017 [facility] RBC 4.77 4.20 - 5.40 06/04/2017 [facility] MPV 8.0 7.4 - 10.4 06/04/2017 [facility] HEMATOLOGY Platelet 341 133 - 450 06/04/2017 [facility] HEMATOLOGY RDW 13.5 11.5 - 14.5 06/04/2017 [facility] WBC 12.0 3.7 - 10.4 06/04/2017 [facility] PTT 29.5 22.9 - 35.8 06/04/2017 [facility] HEMATOLOGY INR 1.04 0.85 - 1.17 06/04/2017 [facility] HEMATOLOGY PT 13.6 12.0 - 14.7 06/04/2017 [facility] CHEM PANEL Lipase Lvl 144 73 - 393 06/01/2017 [facility] CHEM PANEL Magnesium Lvl 2.0 1.8 - 2.4 06/01/2017 [facility] CHEM PANEL eGFR 124 06/01/2017 Result Comment: The eGFR is calculated using the [...] from the National Kidney Disease Education Program (NKDEP) which additionally recommends that when the eGFR is used in patients with extremes of body mass index for purposes of drug dosing, the eGFR should be multiplied by the estimated BMI. [facility] CHEM PANEL Bili Total 0.3 0.2 - 1.3 06/01/2017 [facility] CHEM PANEL AST 22 0 - 37 06/01/2017 [facility] CHEM PANEL Alk Phos 113 39 - 136 06/01/2017 [facility] CHEM PANEL Chloride Lvl 106 95 - 109 06/01/2017 [facility] CHEM PANEL Potassium Lvl 3.7 3.5 - 5.1 06/01/2017 [facility] CHEM PANEL CO2 23 24 - 32 06/01/2017 [facility] CHEM PANEL Total Protein 8.7 6.4 - 8.4 06/01/2017 [facility] CHEM PANEL Calcium Lvl 9.4 8.5 - 10.5 06/01/2017 [facility] CHEM PANEL ALT 44 0 - 65 06/01/2017 [facility] CHEM PANEL Albumin Lvl 4.3 3.5 - 5.0 06/01/2017 [facility] CHEM PANEL Glucose Lvl 84 70 - 99 06/01/2017 [facility] CHEM PANEL Creatinine Lvl 0.71 0.50 - 1.40 06/01/2017 [facility] CHEM PANEL Sodium Lvl 138 135 - 145 06/01/2017 [facility] CHEM PANEL BUN 8 7 - 22 06/01/2017 [facility] CHEM PANEL A/G Ratio 1.0 0.7 - 1.6 06/01/2017 [facility] CHEM PANEL B/C Ratio 11 6 - 25 06/01/2017 [facility] CHEM PANEL Globulin 4.4 2.7 - 4.2 06/01/2017 [facility] CHEM PANEL AGAP 12.7 10.0 - 20.0 06/01/2017 [facility] HEMATOLOGY Basophils # 0.1 0.0 - 0.2 06/01/2017 [facility] HEMATOLOGY Monocytes # 0.7 0.0 - 0.8 06/01/2017 [facility] HEMATOLOGY Eosinophils # 0.1 0.0 - 0.5 06/01/2017 [facility] HEMATOLOGY Lymphocytes 35.2 20.0 - 40.0 06/01/2017 [facility] HEMATOLOGY Eosinophils 1.1 0.0 - 4.0 06/01/2017 [facility] HEMATOLOGY Basophils 0.8 0.0 - 1.0 06/01/2017 [facility] HEMATOLOGY Lymphocytes # 3.5 1.0 - 5.5 06/01/2017 [facility] HEMATOLOGY Monocytes 7.0 2.0 - 12.0 06/01/2017 [facility] HEMATOLOGY Segs-Bands # 5.6 1.5 - 8.1 06/01/2017 [facility] HEMATOLOGY Segs 55.9 45.0 - 75.0 06/01/2017 [facility] HEMATOLOGY MPV 8.3 7.4 - 10.4 06/01/2017 [facility] HEMATOLOGY WBC 10.0 3.7 - 10.4 06/01/2017 [facility] HEMATOLOGY RBC 4.94 4.20 - 5.40 06/01/2017 [facility] HEMATOLOGY Hgb 14.0 12.0 - 16.0 06/01/2017 [facility] HEMATOLOGY MCV 84.8 80.0 - 98.0 06/01/2017 [facility] HEMATOLOGY Platelet 299 133 - 450 06/01/2017 [facility] HEMATOLOGY Hct 41.9 36.0 - 48.0 06/01/2017 [facility] HEMATOLOGY RDW 13.8 11.5 - 14.5 06/01/2017 [facility] HEMATOLOGY MCH 28.4 27.0 - 31.0 06/01/2017 [facility] MCHC 33.5 32.0 - 36.0 06/01/2017 [facility] URINE AND STOOL UA Color Ltyellow 06/01/2017 [facility] URINE AND STOOL UA Urobilinogen <=1.0 mg/dL 0.1 - 1.0 06/01/2017 [facility] URINE AND STOOL UA Blood Negative (06/01/17 1:07 AM) Negative 06/01/2017 [facility] URINE AND STOOL UA Nitrite Negative (06/01/17 1:07 AM) Negative 06/01/2017 [facility] URINE AND STOOL UA Leuk Est Negative (06/01/17 1:07 AM) Negative 06/01/2017 [facility] URINE AND STOOL UA Ketones Negative mg/dL Negative mg/dL 06/01/2017 [facility] URINE AND STOOL UA Bili Negative *NA* (06/01/17 1:07 AM) Negative 06/01/2017 [facility] URINE AND STOOL UA RBC 1 0 - 2 06/01/2017 [facility] URINE AND STOOL UA Sq Epi Occasional /LPF Few /LPF 06/01/2017 [facility] URINE AND STOOL UA Turbidity Clear (06/01/17 1:07 AM) Clear 06/01/2017 [facility] URINE AND STOOL UA Spec Grav 1.004 <=1.030 06/01/2017 [facility] URINE AND STOOL UA pH 7.0 5.0 - 8.0 06/01/2017 [facility] URINE AND STOOL UA Protein Negative mg/dL Negative mg/dL 06/01/2017 [facility] URINE AND STOOL UA Glucose Negative mg/dL Negative mg/dL 06/01/2017 [facility] URINE CHEM U Preg Negative (06/01/17 1:07 AM) Negative 06/01/2017 [facility] Pathology Reports No Data Provided for This Section Diagnostic Reports Report Value Date Source Brain w/wo contrast MRI EXAM: MRI BRAIN WITH AND WITHOUT CONTRAST DATE: 06/03/2017 8:15 PM CDT INDICATION: Lower extremity numbness and weakness. COMPARISON: CT brain dated 06/03/2017. TECHNIQUE: Multiplanar, multisequence MRI imaging of the brain was acquired with and without intravenous contrast. A total of 19 mL Dotarem was administered intravenously. FINDINGS: No acute intracranial hemorrhage, midline shift, or mass effect is identified. The ventricles and sulci are within normal limits, without evidence for hydrocephalus. No evidence for restricted diffusion is present to suggest an acute infarct. There is no abnormal gradient susceptibility artifact or intracranial enhancement. The orbits, paranasal sinuses, and mastoid air cells are unremarkable. The major intracranial flow voids are maintained. IMPRESSION: Unremarkable MRI of the brain. SL: [id number] 06/03/2017 [facility] Carotid artery Doppler bilat US Patient Name: KATINA MELGAR : 1995; Age: 21 years Female MR: [id number] Study: Carotid artery Doppler bilat US 06/03/2017 8:15 PM CDT CLINICAL INDICATION: - tia. COMPARISON: None TECHNIQUE: Dinero-scale, color Doppler and spectral Doppler of the carotid arteries was performed. Any reported ICA stenoses indirectly references the distal internal carotid diameter as the denominator for the stenosis measurement, utilizing consensus panel criteria. FINDINGS: RIGHT: No significant plaque. ICA PSV 96 cm/sec CCA PSV 123 cm/sec ICA/CCA ratio 0.7 Vertebral flow is antegrade. External carotid artery is patent. LEFT: No significant plaque. ICA PSV 109 cm/sec CCA PSV 119 cm/sec ICA/CCA ratio 0.9 Vertebral flow is antegrade. External carotid artery is patent. IMPRESSION: RIGHT: ICA stenosis <50% by velocity criteria. LEFT: ICA stenosis <50% by velocity criteria. Consensus panel Doppler US criteria for diagnosis of ICA stenosis: Stenosis (%) ICA PSV (cm/sec) ICA/CCA ratio <50 <125 <2.0 50-69 125-230 2.0-4.0 >70 but less than >230 >4.0 near occlusion Near occlusion High, low, or Variable undetectable SL: ARAM 06/03/2017 [facility] Chest 1view DX Patient Name: KATINA MELGAR : 1995; Age: 21 years Female MR: [id number] Study: Chest 1view DX Order Time: 06/03/2017 7:24 PM CDT CLINICAL INDICATION: - cp COMPARISON: Chest radiograph on 06/01/2017 FINDINGS: Lines: None. Lungs: The lungs are grossly clear. Mediastinum: The cardiac silhouette is within normal limits of size. Midline trachea. Bones and soft tissues: No acute abnormalities. IMPRESSION: No acute cardiopulmonary abnormalities. SL: ARAM 06/03/2017 [facility] Brain Stroke wo contrast CT Study: Brain Stroke wo contrast CT 06/03/2017 7:24 PM CDT Ordering Physician: Surjit Gomez Clinical Indication: ct dlp: 901.26mgy/cm. - weakness, collapsed at work, difficulty walking, saying 'my heart hurts' and SOB, bilateral leg numbness Comparison: June 01, 2017 TECHNIQUE: CT images are obtained from the foramen magnum to the vertex on a multidetector CT. Sagittal and coronal reformats are acquired. CT radiation dose DLP: 901 mGy-cm. FINDINGS: Ventricles, sulci and basal cisterns are within normal limits for age. The dinero- white junction is intact. No encephalomalacic changes are seen. There is no evidence for intracranial mass, mass effect or extra-axial fluid collection. There is no evidence for intracranial hemorrhage. The skull is intact. Visualized paranasal sinuses are clear. Mastoid air cells are clear. Orbital structures are grossly unremarkable. IMPRESSION: Normal computed tomography scan of the brain without contrast, unchanged as compared to the study performed 2 days earlier. MRI of the brain may be helpful in further assessment. Findings have been communicated by telephone to Surjit Gomez, in the emergency department, at 7:48 PM on 06/03/2017. SL: [id number] 06/03/2017 [facility] Chest 2 views DX Study: CHEST, PA AND LATERAL Clinical Indication: - chest pain; Comparison: None FINDINGS: The heart and mediastinum are normal. The lungs are moderately inflated. No infiltrate, vascular congestion or pleural effusion is seen. There is minimal thoracic dextroscoliosis. IMPRESSION: No acute abnormality. SL: [id number] 06/01/2017 [facility] Brain wo contrast CT CT BRAIN WITHOUT CONTRAST INDICATION: Headache with dizziness, ct dlp; 981.69mGy-cm, - headache and dizziness--Multiple complaints. Pt reports palpitations, headache w photophobia, all extremity numbness x 3 days, N/V/D. Denies PMH. COMPARISON: None DISCUSSION: There is no evidence of acute vascular insults, space occupying lesions, hemorrhage, hydrocephalus, midline shift, or extra-axial fluid collections. The calvarium is intact. IMPRESSION: No acute intracranial abnormalities are visualized. SL:16 06/01/2017 [facility] Consultation Notes No Data Provided for This Section Discharge Summaries No Data Provided for This Section History and Physicals No Data Provided for This Section Vital Signs Vital Sign Value Date Comments Source Respitory Rate 17 06/04/2017 [facility] Temperature Oral (F) 98.3 F 06/04/2017 [facility] Heart Rate 89 06/04/2017 [facility] Systolic (mm Hg) 117 06/04/2017 [facility] Diastolic (mm Hg) 76 06/04/2017 [facility] Heart Rate 94 06/04/2017 [facility] Respitory Rate 17 06/04/2017 [facility] Systolic (mm Hg) 114 06/04/2017 [facility] Diastolic (mm Hg) 79 06/04/2017 [facility] Temperature Oral (F) 98.3 F 06/04/2017 [facility] Temperature Oral (F) 98.5 F 06/04/2017 [facility] Heart Rate 116 06/04/2017 [facility] Respitory Rate 17 06/04/2017 [facility] Systolic (mm Hg) 118 06/04/2017 [facility] Diastolic (mm Hg) 69 06/04/2017 [facility] Height 175.26 cm 06/04/2017 [facility] Weight 95.455 06/04/2017 [facility] BMI Calculated 31.08 06/04/2017 [facility] Weight 97.727 06/04/2017 [facility] BMI Calculated 31.82 06/04/2017 [facility] Height 175.26 cm 06/04/2017 [facility] Temperature Oral (F) 98.2 F 06/01/2017 [facility] Systolic (mm Hg) 122 06/01/2017 [facility] Diastolic (mm Hg) 67 06/01/2017 [facility] Respitory Rate 16 06/01/2017 [facility] Heart Rate 85 06/01/2017 [facility] Systolic (mm Hg) 128 06/01/2017 [facility] Diastolic (mm Hg) 73 06/01/2017 [facility] Heart Rate 89 06/01/2017 [facility] Respitory Rate 19 06/01/2017 [facility] Systolic (mm Hg) 131 06/01/2017 [facility] Diastolic (mm Hg) 70 06/01/2017 [facility] Heart Rate 91 06/01/2017 [facility] Respitory Rate 16 06/01/2017 [facility] Temperature Oral (F) 99.8 F 06/01/2017 [facility] Weight 95.455 06/01/2017 [facility] Height 175.26 cm 06/01/2017 [facility] BMI Calculated 31.08 06/01/2017 [facility] Encounters Location Location Details Encounter Type Encounter Number Reason For Visit Attending Provider ADM Date DC Date Status Source [facility] Emergency [id number] Leda De Jesusooqi 06/01/2017 06/01/2017 [facility] Inpatient [id number] Patrick Ayala 06/03/2017 06/04/2017 [facility] Procedures Procedure Code Date Perfomer Comments Source Cholecystectomy [id number] [facility] Ligament operation [id number] [facility] Assessment and Plan Assessment and Plan Date Source Extracted from:Title: Clinical Document Author: Patrick Ayala MD Date: 06/04/17 Progress Note - Daily [facility] Completed: Sunday, JUN 04, 2017, 15:26 by Patrick Ayala MD RM: CCDU - 15, SE [facility]U KATINA MELGAR 21y (: 1995) F Attending: Patrick Ayala MD Service: Internal Medicine Reason for Admission: BILATERAL LEG WEAKNESS/ N V/ACUTE DIARRHEA Working DRG: Signs and symptoms w/[place] [facility] [place] status: None Specified=FULL CODE Current diet: Isolation: None Documented Allergies: NKDA SUBJECTIVE OBJECTIVE 24hr Labs 06/04 0301 Chol 146 Trig 81 HDL 40 L LDL (Calculated) 90 VLDL 16 CHD Risk 3.65 L Troponin-I <0.02 Hgb A1C 5.0 Glucose Lvl 124 H BUN 6 L Creatinine Lvl 0.70 Sodium Lvl 140 Potassium Lvl 3.3 L Chloride Lvl 110 H CO2 18 L AGAP 15.3 Calcium Lvl 8.8 eGFR 126 06/03 2031 U Amph Scr Negative U Maya Scr Negative U Benzodia Scr Negative U Cannab Scr Negative U Cocaine Scr Negative U Opiate Scr Negative U Phencyc Scr Negative UDS Note See Note Influ A Negative Influ B Negative UA Color Ltyellow UA Turbidity Clear UA Spec Grav 1.005 UA pH 6.0 UA Protein Negative UA Glucose Negative UA Ketones Trace UA Bili Negative UA Blood Moderate UA Urobilinogen <=1.0 UA Nitrite Negative UA Leuk Est Negative UA RBC <1 UA WBC 2 UA Sq Epi Occasional 06/03 1945 S Preg Negative Sodium Lvl 140 Potassium Lvl 3.4 L Chloride Lvl 105 CO2 22 L AGAP 16.4 Glucose Lvl 90 Creatinine Lvl 0.73 BUN 8 B/C Ratio 11 Total Protein 8.7 H Albumin Lvl 4.2 Globulin 4.5 H A/G Ratio 0.9 Calcium Lvl 9.5 ALT 88 H AST 34 Alk Phos 113 Bili Total 0.5 eGFR 120 Total CK 49 Troponin-I <0.02 CK MB 0.5 CK MB Index 1.0 WBC 12.0 H RBC 4.77 Hgb 13.6 Hct 40.4 MCV 84.6 MCH 28.4 MCHC 33.6 RDW 13.5 Platelet 341 MPV 8.0 Segs 70.5 Monocytes 7.8 Lymphocytes 21.0 Eosinophils 0.2 Basophils 0.5 Segs-Bands # 8.5 H Lymphocytes # 2.5 Monocytes # 0.9 H Basophils # 0.1 PT 13.6 INR 1.04 PTT 29.5 06/034 POC Performing Locatio See Note Glucose POC 97 [place] still necessary (Yes/No): Line still necessary (Yes/No): Vitals Tmp(F) Pulse BP RR SpO2 FIO2 06/04 10:53 98.3 94 114/79 17 96 --- 06/04 07:19 98.5 116 118/69 17 98 --- 06/04 03:15 97.8 94 134/83 16 97 --- 06/04 01:53 ---- 70 ----- -- --- --- 06/03 23:18 98.3 --- 144/78 16 100 21% 24 Hr Tmax: 99.7F (37.61c) at 06/03 19:18 Vital Signs are the last 5 in the past 48 hours. Date Wt(kg) Wt(lb) Ht(cm) Ht(in) Method 06/03 (initial) 97.73 215.00 Estimated 06/03 175.26 69.00 Stated I&O Record In Out Bal 06/04 24hr Tot 10 700 -690 06/03 24hr Tot 1020 1000 20 Medications (13) Active [...] (SEROquel) 400 mg PO Bedtime 06/04/17 acetaminophen-hydrocodone ([place] 5/325 oral tablet) 1 tab PO Q4H [...] mg PO ONCE Continuous Infusions: None ASSESSMENT and EXAM PLAN and TREATMENT DIAGNOSES and PROBLEMS [id number] Ready for Discharge (Yes/No)? TEACHING ATTESTATION 06/04/2017 [facility] Plan of Care No Data Provided for This Section Social History Social History Date Source Social History TypeResponse Substance Abuse Use: None. Sexual Sexually active: [...] Days No; Reg Smoking Cessation Counseling Yes 06/04/2017 [facility] Family History No Data Provided for This Section Advance Directives No Data Provided for This Section Functional Status No Data Provided for This Section
--- OUTSIDE RECORDS SUMMARY | 2019-03-08 18:45 | XMS REPORT ---
Author [facility] Address Unknown Phone Unavailable Care Team Providers Care Leasing Property Manager Name Role Phone Unavailable Unavailable Payers Payer Name Policy Type Policy Number Effective Date Expiration Date Problems This patient has no known problems. Allergies, Adverse Reactions, Alerts Allergy Name Allergy Type Status Severity Reaction(s) Onset Date Inactive Date Treating Clinician Comments No Known Allergies DA Active U 2018-10-16 00:00:00 No Known Allergies DA Active U 2018-10-08 00:00:00 No Known Allergies DA Active U 2017-12-13 00:00:00 Medications This patient has no known medications. Results Test Description Test Time Test Comments Text Results Atomic Results Result Comments - CT HEAD/BRAIN W/O CONT 2019-03-08 14:11:00 Name: KATINA MELGAR Jessica [facility] : 1995 Age/S: 23 / F [address] Unit #: [id number] Loc: [place] [address] Phys: Scar Ferraro ENGINE LATHE TENDER Acct: [id number] Dis Date: Status: REG ER PHONE #: [phone] Exam Date: 03/08/2019 1305 FAX #: [phone] Reason: POSS LOC EXAMS: CPT CODE: [id number] CT HEAD/BRAIN W/O CONT 41138 HISTORY: POSS LOC TECHNIQUE: Noncontrast 2.[address] of the head. Examination acquired within 24 hours of arrival. Automated exposure control for dose reduction. COMPARISON: Noncontrast CT brain December 13, 2017 FINDINGS: No acute hemorrhage. No intracranial mass, mass effect, or midline shift. No CT evidence of acute infarct. Dinero-white matter differentiation is preserved. No hydrocephalus. No extra-axial fluid collection. Visualized paranasal sinuses are clear. Mastoid air cells and middle ear cavities are clear. Orbital contents are unremarkable. Calvarium and skull base are intact. IMPRESSION: Negative CT head. at 1411 Reported and signed by: Ilir collado MD CC: Scar Ferraro ENGINE LATHE TENDER; Tyree Cleaning DO Technologist:Dulce Maria Horne RT(R),CT CTDI: DLP: Trnscb Date/Time: 03/08/2019 (1411) [email or web address] Orig Print D/T: S: 03/08/2019 (4116) PAGE 1 Signed Report URINALYSIS COMPLETE 2019-03-08 13:12:00 UA COLOR (test code=COLU) Light-Yellow YELLOW UA APPEARANCE (test code=APPU) CLEAR CLEAR UA GLUCOSE DIPSTICK (test code=DGLUU) NEGATIVE mg/dL NEGATIVE UA BILIRUBIN DIPSTICK (test code=BILU) NEGATIVE mg/dL NEGATIVE UA KETONE DIPSTICK (test code=KETU) NEGATIVE mg/dL NEGATIVE UA SPECIFIC GRAVITY (test code=SGU) 1.013 1.001-1.035 UA BLOOD DIPSTICK (test code=MARIETTA) Negative mg/dL NEGATIVE UA PH DIPSTICK (test code=RODOLFO) 6.0 5.0-8.0 UA PROTEIN DIPSTICK (test code=PROU) NEGATIVE mg/dL NEGATIVE UA UROBILINIOGEN DIPSTICK (test code=URO) Normal mg/dL NEGATIVE UA NITRITE DIPSTICK (test code=RACHELLE) NEGATIVE NEGATIVE UA LEUKOCYTE ESTERASE W REFLEX (test code=LEUUR) NEGATIVE Boyd/uL NEGATIVE UA WBC (test code=WBCU) 0-5 per HPF 0-5 UA RBC (test code=RBCU) 0-2 #/HPF 0-5 UA EPITHELIAL CELLS (test code=EPIU) FEW per HPF FEW UA BACTERIA (test code=BACU) FEW #/HPF NONE UA MUCUS (test code=MUCU) FEW #/LPF FEW Urine Source? Clean CatchDRUGS OF ABUSE SCREEN [id number] 13:12:00* Test Item Value Reference Range Comments URN COCAINE (test code=COCAURN) NEGATIVE <300 ng/mL URN CANNABINOIDS (test code=CANNABURN) NEGATIVE <50 ng/mL URN AMPHETAMINE (test code=AMPHETURN) NEGATIVE <1000 ng/mL URN BARBITURATE (test code=BARBITURN) POSITIVE <200 ng/mL This test provides only a preliminary test result. A morespecific alternate chemical method must be used in order toobtain a confirmed analytical result. Gas chromatography/mass spectrometry (GC/MS) is thepreferred confirmatory method. Other chemical confirmationmethods are available. Clinical consideration and professional judgment should be applied to any drug of abusetest result, particularly when preliminary positive resultsare used.Unconfirmed screening results must not be used fornon-medical purposes (e.g., employment testing, legaltesting). URN BENZODIAZEPINE (test code=BENZOURN) NEGATIVE <200 ng/mL URN OPIATES (test code=OPIATURN) NEGATIVE <300 ng/mL URN PHENCYCLIDINE (PCP) (test code=PHENCURN) NEGATIVE <25 ng/mL URN METHADONE (test code=METHAURN) NEGATIVE <300 ng/mL Urine Source? Clean CatchURINALYSIS [id number] 12:58:00* Test Item Value Reference Range Comments UA COLOR (test code=COLU) Light-Yellow YELLOW UA APPEARANCE (test code=APPU) CLEAR CLEAR UA GLUCOSE DIPSTICK (test code=DGLUU) NEGATIVE mg/dL NEGATIVE UA BILIRUBIN DIPSTICK (test code=BILU) NEGATIVE mg/dL NEGATIVE UA KETONE DIPSTICK (test code=KETU) NEGATIVE mg/dL NEGATIVE UA SPECIFIC GRAVITY (test code=SGU) 1.013 1.001-1.035 UA BLOOD DIPSTICK (test code=MARIETTA) Negative mg/dL NEGATIVE UA PH DIPSTICK (test code=RODOLFO) 6.0 5.0-8.0 UA PROTEIN DIPSTICK (test code=PROU) NEGATIVE mg/dL NEGATIVE UA UROBILINIOGEN DIPSTICK (test code=URO) Normal mg/dL NEGATIVE UA NITRITE DIPSTICK (test code=RACHELLE) NEGATIVE NEGATIVE UA LEUKOCYTE ESTERASE W REFLEX (test code=LEUUR) NEGATIVE Boyd/uL NEGATIVE UA WBC (test code=WBCU) 0-5 per HPF 0-5 UA RBC (test code=RBCU) 0-2 #/HPF 0-5 UA EPITHELIAL CELLS (test code=EPIU) FEW per HPF FEW UA BACTERIA (test code=BACU) FEW #/HPF NONE UA MUCUS (test code=MUCU) FEW #/LPF FEW Urine Source? Clean CatchDRUGS OF ABUSE SCREEN [id number] 12:58:00* Test Item Value Reference Range Comments URN COCAINE (test code=COCAURN) <300 ng/mL URN CANNABINOIDS (test code=CANNABURN) <50 ng/mL URN AMPHETAMINE (test code=AMPHETURN) <1000 ng/mL URN BARBITURATE (test code=BARBITURN) <200 ng/mL URN BENZODIAZEPINE (test code=BENZOURN) <200 ng/mL URN OPIATES (test code=OPIATURN) <300 ng/mL URN PHENCYCLIDINE (PCP) (test code=PHENCURN) <25 ng/mL URN METHADONE (test code=METHAURN) <300 ng/mL Urine Source? Clean CatchUR HCG [id number] 12:35:00* Test Item Value Reference Range Comments UR HCG QUAL (test code=HCGQLU) NEGATIVE This HCGQL test is NOT applicable for MALE patients.Check with nurse about probable order error.If Tumor Marker Test needed, nurse should order test "HCGTU"(Test #550.50166) BASIC METABOLIC [id number] 12:04:00* Test Item Value Reference Range Comments SODIUM (test code=NA) 141 mmol/L 136-145 POTASSIUM (test code=K) 3.7 mmol/L 3.5-5.1 CHLORIDE (test code=CL) 111.0 mmol/L 98-107 CARBON DIOXIDE (test code=CO2) 24.0 mmol/L 21-32 ANION GAP (test code=GAP) 9.7 10-20 GLUCOSE (test code=GLU) 83 mg/dL 74-106 BLOOD UREA NITROGEN (test code=BUN) 8 mg/dL 7-18 GLOMERULAR FILTRATION RATE (test code=GFR) > 60 mL/min >=60 Estimated GFR by using Modified MDRD formula.Chronic kidney disease is defined as either kidney damageor GFR <60 mL/min/1.73 m2 for >3 months. CREATININE (test code=CREAT) 0.80 mg/dL 0.55-1.02 Note change in reference range due to change in reagent. BUN/CREATININE RATIO (test code=BUN/CREA) 9.8 10-20 CALCIUM (test code=CA) 8.8 mg/dL 8.5-10.1 [id number] 12:04:00* Test Item Value Reference Range Comments TROPONIN-I (test code=TROPI) <0.015 ng/mL 0-0.045 CBC W/O [id number] 12:03:00* Test Item Value Reference Range Comments WHITE BLOOD CELL (test code=WBC) 7.6 K/mm3 4.5-12.5 RED BLOOD CELL (test code=RBC) 4.47 mill/mm3 3.7-5.2 HEMOGLOBIN (test code=HGB) 12.5 gram/dL 11.5-15.5 HEMATOCRIT (test code=HCT) 38.3 % 36.0-46.0 MEAN CELL VOLUME (test code=MCV) 85.7 fL 80-98 MEAN CELL HGB (test code=MCH) 28.0 picogram 27.0-33.0 MEAN CELL HGB CONCETRATION (test code=MCHC) 32.6 gram/dL 33.0-36.0 RED CELL DISTRIBUTION WIDTH (test code=RDW) 13.9 % 11.6-16.2 PLATELET COUNT (test code=PLT) 267 K/mm3 150-450 RESULT VERIFIED BY REPEAT ANALYSIS MEAN PLATELET VOLUME (test code=MPV) 9.7 fL 6.7-11.0 BASIC METABOLIC [id number] 11:55:00* Test Item Value Reference Range Comments SODIUM (test code=NA) 141 mmol/L 136-145 POTASSIUM (test code=K) 3.7 mmol/L 3.5-5.1 CHLORIDE (test code=CL) 111.0 mmol/L 98-107 CARBON DIOXIDE (test code=CO2) mmol/L 21-32 ANION GAP (test code=GAP) 10-20 GLUCOSE (test code=GLU) mg/dL 74-106 BLOOD UREA NITROGEN (test code=BUN) mg/dL 7-18 GLOMERULAR FILTRATION RATE (test code=GFR) mL/min >=60 CREATININE (test code=CREAT) mg/dL 0.55-1.02 BUN/CREATININE RATIO (test code=BUN/CREA) 10-20 CALCIUM (test code=CA) mg/dL 8.5-10.1 [id number] 11:55:00* Test Item Value Reference Range Comments TROPONIN-I (test code=TROPI) ng/mL 0-0.045 URINALYSIS [id number] 20:20:00* Test Item Value Reference Range Comments UA COLOR (test code=COLU) Light-Yellow YELLOW UA APPEARANCE (test code=APPU) CLEAR CLEAR UA GLUCOSE DIPSTICK (test code=DGLUU) NEGATIVE mg/dL NEGATIVE UA BILIRUBIN DIPSTICK (test code=BILU) NEGATIVE mg/dL NEGATIVE UA KETONE DIPSTICK (test code=KETU) NEGATIVE mg/dL NEGATIVE UA SPECIFIC GRAVITY (test code=SGU) 1.026 1.001-1.035 UA BLOOD DIPSTICK (test code=MARIETTA) Negative mg/dL NEGATIVE UA PH DIPSTICK (test code=RODOLFO) 6.5 5.0-8.0 UA PROTEIN DIPSTICK (test code=PROU) NEGATIVE mg/dL NEGATIVE UA UROBILINIOGEN DIPSTICK (test code=URO) 2.0 (1+) mg/dL NEGATIVE UA NITRITE DIPSTICK (test code=RACHELLE) NEGATIVE NEGATIVE UA LEUKOCYTE ESTERASE W REFLEX (test code=LEUUR) NEGATIVE Boyd/uL NEGATIVE UA WBC (test code=WBCU) 0-5 per HPF 0-5 UA RBC (test code=RBCU) NONE SEEN #/HPF 0-5 UA EPITHELIAL CELLS (test code=EPIU) FEW per HPF FEW UA BACTERIA (test code=BACU) NONE SEEN #/HPF NONE UA MUCUS (test code=MUCU) FEW #/LPF FEW Urine Source? Clean CatchDRUGS OF ABUSE SCREEN [id number] 20:20:00* Test Item Value Reference Range Comments URN COCAINE (test code=COCAURN) NEGATIVE <300 ng/mL URN CANNABINOIDS (test code=CANNABURN) NEGATIVE <50 ng/mL URN AMPHETAMINE (test code=AMPHETURN) NEGATIVE <1000 ng/mL URN BARBITURATE (test code=BARBITURN) POSITIVE <200 ng/mL This test provides only a preliminary test result. A morespecific alternate chemical method must be used in order toobtain a confirmed analytical result. Gas chromatography/mass spectrometry (GC/MS) is thepreferred confirmatory method. Other chemical confirmationmethods are available. Clinical consideration and professional judgment should be applied to any drug of abusetest result, particularly when preliminary positive resultsare used.Unconfirmed screening results must not be used fornon-medical purposes (e.g., employment testing, legaltesting). URN BENZODIAZEPINE (test code=BENZOURN) NEGATIVE <200 ng/mL URN OPIATES (test code=OPIATURN) NEGATIVE <300 ng/mL URN PHENCYCLIDINE (PCP) (test code=PHENCURN) NEGATIVE <25 ng/mL URN METHADONE (test code=METHAURN) NEGATIVE <300 ng/mL Urine Source? Clean CatchBASIC METABOLIC [id number] 20:16:00* Test Item Value Reference Range Comments SODIUM (test code=NA) 141 mmol/L 136-145 POTASSIUM (test code=K) 3.7 mmol/L 3.5-5.1 CHLORIDE (test code=CL) 110.0 mmol/L 98-107 CARBON DIOXIDE (test code=CO2) 23.0 mmol/L 21-32 ANION GAP (test code=GAP) 11.7 10-20 GLUCOSE (test code=GLU) 113 mg/dL 74-106 BLOOD UREA NITROGEN (test code=BUN) 11 mg/dL 7-18 GLOMERULAR FILTRATION RATE (test code=GFR) > 60 mL/min >=60 Estimated GFR by using Modified MDRD formula.Chronic kidney disease is defined as either kidney damageor GFR <60 mL/min/1.73 m2 for >3 months. CREATININE (test code=CREAT) 1.00 mg/dL 0.55-1.02 Note change in reference range due to change in reagent. BUN/CREATININE RATIO (test code=BUN/CREA) 11.6 10-20 CALCIUM (test code=CA) 9.5 mg/dL 8.5-10.1 HEPATIC FUNCTION [id number] 20:16:00* Test Item Value Reference Range Comments TOTAL PROTEIN (test code=PROT) 8.1 gram/dL 6.4-8.2 ALBUMIN (test code=ALB) 3.9 g/dL 3.4-5.0 GLOBULIN (test code=GLOB) 4.2 gram/dL 2.7-4.2 ALBUMIN/GLOBULIN RATIO (test code=A/G) 0.9 0.75-1.50 BILIRUBIN TOTAL (test code=BILT) 0.10 mg/dL 0.0-1.0 BILIRUBIN DIRECT (test code=BILD) 0.10 mg/dL 0.0-0.20 SGOT/AST (test code=AST) 14 IUnit/L 15-37 SGPT/ALT (test code=ALT) 29 IUnit/L 12-78 ALKALINE PHOSPHATASE TOTAL (test code=ALKP) 96 IUnit/L 45-117 Note change in reference range due to change in reagent. HCG SERUM [id number] 20:16:00* Test Item Value Reference Range Comments HCG SERUM QUAL (test code=HCGQL) NEGATIVE NEGATIVE This HCGQL test is NOT applicable for MALE patients.Check with nurse about probable order error.If Tumor Marker Test needed, nurse should order test "HCGTU"(Test #550.95067) BASIC METABOLIC [id number] 20:09:00* Test Item Value Reference Range Comments SODIUM (test code=NA) 141 mmol/L 136-145 POTASSIUM (test code=K) 3.7 mmol/L 3.5-5.1 CHLORIDE (test code=CL) 110.0 mmol/L 98-107 CARBON DIOXIDE (test code=CO2) mmol/L 21-32 ANION GAP (test code=GAP) 10-20 GLUCOSE (test code=GLU) mg/dL 74-106 BLOOD UREA NITROGEN (test code=BUN) mg/dL 7-18 GLOMERULAR FILTRATION RATE (test code=GFR) mL/min >=60 CREATININE (test code=CREAT) mg/dL 0.55-1.02 BUN/CREATININE RATIO (test code=BUN/CREA) 10-20 CALCIUM (test code=CA) mg/dL 8.5-10.1 HEPATIC FUNCTION [id number] 20:09:00* Test Item Value Reference Range Comments TOTAL PROTEIN (test code=PROT) gram/dL 6.4-8.2 ALBUMIN (test code=ALB) g/dL 3.4-5.0 GLOBULIN (test code=GLOB) gram/dL 2.7-4.2 ALBUMIN/GLOBULIN RATIO (test code=A/G) 0.75-1.50 BILIRUBIN TOTAL (test code=BILT) mg/dL 0.0-1.0 BILIRUBIN DIRECT (test code=BILD) mg/dL 0.0-0.20 SGOT/AST (test code=AST) IUnit/L 15-37 SGPT/ALT (test code=ALT) IUnit/L 12-78 ALKALINE PHOSPHATASE TOTAL (test code=ALKP) IUnit/L 45-117 HCG SERUM [id number] 20:09:00* Test Item Value Reference Range Comments HCG SERUM QUAL (test code=HCGQL) NEGATIVE NEGATIVE This HCGQL test is NOT applicable for MALE patients.Check with nurse about probable order error.If Tumor Marker Test needed, nurse should order test "HCGTU"(Test #550.72854) BASIC METABOLIC [id number] 20:06:00* Test Item Value Reference Range Comments SODIUM (test code=NA) 141 mmol/L 136-145 POTASSIUM (test code=K) 3.7 mmol/L 3.5-5.1 CHLORIDE (test code=CL) 110.0 mmol/L 98-107 CARBON DIOXIDE (test code=CO2) mmol/L 21-32 ANION GAP (test code=GAP) 10-20 GLUCOSE (test code=GLU) mg/dL 74-106 BLOOD UREA NITROGEN (test code=BUN) mg/dL 7-18 GLOMERULAR FILTRATION RATE (test code=GFR) mL/min >=60 CREATININE (test code=CREAT) mg/dL 0.55-1.02 BUN/CREATININE RATIO (test code=BUN/CREA) 10-20 CALCIUM (test code=CA) mg/dL 8.5-10.1 HEPATIC FUNCTION [id number] 20:06:00* Test Item Value Reference Range Comments TOTAL PROTEIN (test code=PROT) gram/dL 6.4-8.2 ALBUMIN (test code=ALB) g/dL 3.4-5.0 GLOBULIN (test code=GLOB) gram/dL 2.7-4.2 ALBUMIN/GLOBULIN RATIO (test code=A/G) 0.75-1.50 BILIRUBIN TOTAL (test code=BILT) mg/dL 0.0-1.0 BILIRUBIN DIRECT (test code=BILD) mg/dL 0.0-0.20 SGOT/AST (test code=AST) IUnit/L 15-37 SGPT/ALT (test code=ALT) IUnit/L 12-78 ALKALINE PHOSPHATASE TOTAL (test code=ALKP) IUnit/L 45-117 HCG SERUM [id number] 20:06:00* Test Item Value Reference Range Comments HCG SERUM QUAL (test code=HCGQL) NEGATIVE CBC W/AUTO [id number] 19:49:00* Test Item Value Reference Range Comments WHITE BLOOD CELL (test code=WBC) 15.5 K/mm3 4.5-12.5 RED BLOOD CELL (test code=RBC) 4.47 mill/mm3 3.7-5.2 HEMOGLOBIN (test code=HGB) 12.6 gram/dL 11.5-15.5 HEMATOCRIT (test code=HCT) 38.5 % 36.0-46.0 MEAN CELL VOLUME (test code=MCV) 86.1 fL 80-98 MEAN CELL HGB (test code=MCH) 28.2 picogram 27.0-33.0 MEAN CELL HGB CONCETRATION (test code=MCHC) 32.7 gram/dL 33.0-36.0 RED CELL DISTRIBUTION WIDTH (test code=RDW) 13.9 % 11.6-16.2 RED CELL DISTRIBUTION WIDTH SD (test code=RDW-SD) 43.3 fL 37.0-51.0 PLATELET COUNT (test code=PLT) 342 K/mm3 150-450 MEAN PLATELET VOLUME (test code=MPV) 9.8 fL 6.7-11.0 NEUTROPHIL % (test code=NT%) 76.8 % 39.0-69.0 IMMATURE GRANULOCYTE % (test code=IG%) 0.7 % 0.0-5.0 LYMPHOCYTE % (test code=LY%) 14.5 % 25.0-55.0 MONOCYTE % (test code=MO%) 7.7 % 0.0-10.0 EOSINOPHIL % (test code=EO%) 0.1 % 0.0-5.0 BASOPHIL % (test code=BA%) 0.2 % 0.0-1.0 NUCLEATED RBC % (test code=NRBC%) 0.0 % 0-0 NEUTROPHIL # (test code=NT#) 11.89 K/mm3 1.8-7.7 IMMATURE GRANULOCYTE # (test code=IG#) 0.11 x10 3/uL 0-0.03 LYMPHOCYTE # (test code=LY#) 2.25 K/mm3 1.0-5.0 MONOCYTE # (test code=MO#) 1.19 K/mm3 0-0.8 EOSINOPHIL # (test code=EO#) 0.02 K/mm3 0.0-0.5 BASOPHIL # (test code=BA#) 0.03 K/mm3 0.0-0.2 NUCLEATED RBC # (test code=NRBC#) 0.00 K/mm3 0.0-0.1 URINALYSIS [id number] 19:36:00* Test Item Value Reference Range Comments UA COLOR (test code=COLU) Light-Yellow YELLOW UA APPEARANCE (test code=APPU) CLEAR CLEAR UA GLUCOSE DIPSTICK (test code=DGLUU) NEGATIVE mg/dL NEGATIVE UA BILIRUBIN DIPSTICK (test code=BILU) NEGATIVE mg/dL NEGATIVE UA KETONE DIPSTICK (test code=KETU) NEGATIVE mg/dL NEGATIVE UA SPECIFIC GRAVITY (test code=SGU) 1.026 1.001-1.035 UA BLOOD DIPSTICK (test code=MARIETTA) Negative mg/dL NEGATIVE UA PH DIPSTICK (test code=RODOLFO) 6.5 5.0-8.0 UA PROTEIN DIPSTICK (test code=PROU) NEGATIVE mg/dL NEGATIVE UA UROBILINIOGEN DIPSTICK (test code=URO) 2.0 (1+) mg/dL NEGATIVE UA NITRITE DIPSTICK (test code=RACHELLE) NEGATIVE NEGATIVE UA LEUKOCYTE ESTERASE W REFLEX (test code=LEUUR) NEGATIVE Boyd/uL NEGATIVE UA WBC (test code=WBCU) 0-5 per HPF 0-5 UA RBC (test code=RBCU) NONE SEEN #/HPF 0-5 UA EPITHELIAL CELLS (test code=EPIU) FEW per HPF FEW UA BACTERIA (test code=BACU) NONE SEEN #/HPF NONE UA MUCUS (test code=MUCU) FEW #/LPF FEW Urine Source? Clean CatchDRUGS OF ABUSE SCREEN [id number] 19:36:00* Test Item Value Reference Range Comments URN COCAINE (test code=COCAURN) <300 ng/mL URN CANNABINOIDS (test code=CANNABURN) <50 ng/mL URN AMPHETAMINE (test code=AMPHETURN) <1000 ng/mL URN BARBITURATE (test code=BARBITURN) <200 ng/mL URN BENZODIAZEPINE (test code=BENZOURN) <200 ng/mL URN OPIATES (test code=OPIATURN) <300 ng/mL URN PHENCYCLIDINE (PCP) (test code=PHENCURN) <25 ng/mL URN METHADONE (test code=METHAURN) <300 ng/mL Urine Source? Clean CatchURINALYSIS [id number] 19:34:00* Test Item Value Reference Range Comments UA COLOR (test code=COLU) Light-Yellow YELLOW UA APPEARANCE (test code=APPU) CLEAR CLEAR UA GLUCOSE DIPSTICK (test code=DGLUU) NEGATIVE mg/dL NEGATIVE UA BILIRUBIN DIPSTICK (test code=BILU) NEGATIVE mg/dL NEGATIVE UA KETONE DIPSTICK (test code=KETU) NEGATIVE mg/dL NEGATIVE UA SPECIFIC GRAVITY (test code=SGU) 1.026 1.001-1.035 UA BLOOD DIPSTICK (test code=MARIETTA) Negative mg/dL NEGATIVE UA PH DIPSTICK (test code=RODOLFO) 6.5 5.0-8.0 UA PROTEIN DIPSTICK (test code=PROU) NEGATIVE mg/dL NEGATIVE UA UROBILINIOGEN DIPSTICK (test code=URO) 2.0 (1+) mg/dL NEGATIVE UA NITRITE DIPSTICK (test code=RACHELLE) NEGATIVE NEGATIVE UA LEUKOCYTE ESTERASE W REFLEX (test code=LEUUR) NEGATIVE Boyd/uL NEGATIVE UA WBC (test code=WBCU) per HPF 0-5 UA RBC (test code=RBCU) per HPF 0-5 UA EPITHELIAL CELLS (test code=EPIU) per HPF Few UA BACTERIA (test code=BACU) per HPF NONE Urine Source? Clean CatchDRUGS OF ABUSE SCREEN [id number] 19:34:00* Test Item Value Reference Range Comments URN COCAINE (test code=COCAURN) <300 ng/mL URN CANNABINOIDS (test code=CANNABURN) <50 ng/mL URN AMPHETAMINE (test code=AMPHETURN) <1000 ng/mL URN BARBITURATE (test code=BARBITURN) <200 ng/mL URN BENZODIAZEPINE (test code=BENZOURN) <200 ng/mL URN OPIATES (test code=OPIATURN) <300 ng/mL URN PHENCYCLIDINE (PCP) (test code=PHENCURN) <25 ng/mL URN METHADONE (test code=METHAURN) <300 ng/mL Urine Source? Clean Catch- CT ABD PELVIS [id number] 20:46:00 Name: KATINA MELGAR [facility] : 1995 Age/S: 23 / F [address] [facility] Unit #: [id number] Loc: [place] [address] Phys: Salty Camacho MD Acct: [id number] Di s Date: Status: REG ER PHONE #: Exam Date: 10/16/20182029 FAX #: Reason: L flank pain EXAMS: CPT CODE: [id number] CT ABD PELVIS W/CONT [id number] REASON FOR EXAM: L flank pain EXAM ORDER DATE: 10/16/2018 6:19 PM Order ing M.D.: Bill Camacho MD PROCEDURE: - CT ABD PELVIS W/CONT COMPARISON: FINDINGS: CT images of the abdomen and pelvis were obtained with IV and without oral contrast at 5mm. Dose modulation, iterative reconstruction, and/or weight based adjustment of the MA/KV was utilized to reduce the radiation dose to as low as reasonably achie vable. Intravenous contrast: 100c of Omnipaque 370. The liver, spleen, pancreas are grossly within normal limits. The patient is status post cholecystectomy. The kidneys are within normal li mits. The urinary bladder is partially contracted The colon , small bowel, and stomach are within normal limits without evidence of ob struction. The appendix is unremarkable. No evidence of free air or free fluid. The uterus is unremarkable. IMPRESSION: No acute findings in the abdomen Electronically Signed by Moncho Marquez on at 204 Reported and signed by: León Marquez M.D. CC: Bill Camacho MD Technologist:Jessica Horne RT(R),CT CTDI: DLP: Trnscb Date/Time: 2018 (2045) [email or web address] Orig Print D/T: S: 10/16/2018 (2048 ) CTDI: DLP: PAGE 1 Signed Report - CT CHEST [id number] 20:44:00 Name: KATINA MELGAR [facility] : 1995 Age/S: 23 / F [address] [facility] Unit #: [id number] Loc: [place] [address] Phys: Salty Camacho MD Acct: [id number] Di s Date: Status: REG ER PHONE #: [phone] Exam Date: 10/16/20182029 FAX #: [phone] Reason: L scapular pain EXAMS: CPT CODE: [id number] CT CHEST W/CO NTRAST [id number] REASON FOR EXAM: L scapul ar pain EXAM ORDER DATE: 10/16/2018 6:19 PM Ordering Keith Cook: Bill Camacho MD PROCEDURE: - CT CHEST W/CONTRAST FINDINGS: CT images of the chest were obtained with IV contrast. Recon structed sagittal and coronal images of the chest were provided for interp retation. Dose modulation, iterative reconstruction, and/or weight based adjustment of the MA/KV was utilized to reduce the radiation dose to as lo w as reasonably achievable. Intravenous contrast: 100c of Omnipaq ue 370. The heart size is within normal limits. No evidence of pe ricardial effusion The thoracic aorta is unremarkable. No evidence of dissection or aneurysmal dilatation. No filling defect seen with in the main or lobar pulmonary arteries to suggest pulmonary embolus. No evidence of mediastinal or hilar adenopathy. The lungs are clear. No evidence of pleural effusion IMPRESSION: No acute findings in the chest. at 20 44 Reported and signed by: León Marquez M.D. CC: Bill Camacho MD Technologist:Dulce Maria trivedi RT(R),CT CTDI: DLP: Trnscb Date/Time: 10/16/2018 () t.SDR.VTL Orig Print D/T: S: 10/16/2018 (2046) C TDI: DLP: PAGE 1 Signed Report CBC W/O [id number] 19:53:00* Test Item Value Reference Range Comments WHITE BLOOD CELL (test code=WBC) 11.6 K/mm3 4.5-12.5 RED BLOOD CELL (test code=RBC) 4.21 mill/mm3 3.7-5.2 HEMOGLOBIN (test code=HGB) 12.0 gram/dL 11.5-15.5 HEMATOCRIT (test code=HCT) 37.1 % 36.0-46.0 MEAN CELL VOLUME (test code=MCV) 88.1 fL 80-98 MEAN CELL HGB (test code=MCH) 28.5 picogram 27.0-33.0 MEAN CELL HGB CONCETRATION (test code=MCHC) 32.3 gram/dL 33.0-36.0 RED CELL DISTRIBUTION WIDTH (test code=RDW) 13.4 % 11.6-16.2 PLATELET COUNT (test code=PLT) 292 K/mm3 150-450 MEAN PLATELET VOLUME (test code=MPV) 10.0 fL 6.7-11.0 - CT ABD PELVIS W/O [id number] 16:58:00 Name: KATINA MELGAR [facility] : 1995 Age/S: 23 / F [address] [facility] Unit #: [id number] Loc: [place] [address] Phys: Bill Camacho MD Acct: [id number] Dis Date: Status: REG ER PHONE #: [phone] Exam Date: 10/16/2018 1647 FAX #: [phone] Reason: R flank pain, hematuria EXAMS: CPT CODE: [id number] CT ABD PELVIS W/O CONT [id number] REASON FOR EXAM: R flank pain, hematuria EXAM ORDER DATE: 10/16/2018 4:07 PM Ordering Moncho: Bill Camacho MD PROCEDURE: - CT ABD PELVIS W/O CONT COMPARISON: FINDINGS: CT images of the abdomen and pelvis were obtained without IV and without oral contrast at 5mm. Dose modulation, iterative reconstruction, and/or weight based adjustment of the MA/KV was utilized to reduce the radiation dose to as low as reasonably achievable. The liver, spleen, and pancreas are grossly within normal limits. The patient is status post cholecystectomy The kidneys are within normal limits. The urinary bladder is unre markable. The colon, small bowel, and stomach are within normal li mits without evidence of obstruction. The appendix is unremarkable No evidence of free air or free fluid. The uterus is unremarkable. IMPRESSION: No acute findings in the abdomen. Electronic[employer] lly Signed by Moncho Marquez on 10/16/2018 at 1658 Reporte d and signed by: León Marquez M.D. CC: Bill Camacho MD Technologist:Evy Duarte RT(R) CTDI: DLP: Trnscb Date/Time: 10/16/2018 (1658) [email or web address] Orig Print D/T: S: 10/16/2018 (3781) CTDI: DLP: PAGE 1 Signed Report BASIC METABOLIC [id number] 16:46:00* Test Item Value Reference Range Comments SODIUM (test code=NA) 140 mmol/L 136-145 POTASSIUM (test code=K) 3.6 mmol/L 3.5-5.1 CHLORIDE (test code=CL) 108.0 mmol/L 98-107 CARBON DIOXIDE (test code=CO2) 24.0 mmol/L 21-32 ANION GAP (test code=GAP) 11.6 10-20 GLUCOSE (test code=GLU) 112 mg/dL 74-106 BLOOD UREA NITROGEN (test code=BUN) 9 mg/dL 7-18 GLOMERULAR FILTRATION RATE (test code=GFR) > 60 mL/min >=60 Estimated GFR by using Modified MDRD formula.Chronic kidney disease is defined as either kidney damageor GFR <60 mL/min/1.73 m2 for >3 months. CREATININE (test code=CREAT) 0.90 mg/dL 0.55-1.02 Note change in reference range due to change in reagent. BUN/CREATININE RATIO (test code=BUN/CREA) 9.6 10-20 CALCIUM (test code=CA) 8.7 mg/dL 8.5-10.1 HEPATIC FUNCTION [id number] 16:46:00* Test Item Value Reference Range Comments TOTAL PROTEIN (test code=PROT) 8.0 gram/dL 6.4-8.2 ALBUMIN (test code=ALB) 3.6 g/dL 3.4-5.0 GLOBULIN (test code=GLOB) 4.4 gram/dL 2.7-4.2 ALBUMIN/GLOBULIN RATIO (test code=A/G) 0.8 0.75-1.50 BILIRUBIN TOTAL (test code=BILT) 0.20 mg/dL 0.0-1.0 BILIRUBIN DIRECT (test code=BILD) 0.08 mg/dL 0.0-0.20 SGOT/AST (test code=AST) 23 IUnit/L 15-37 SGPT/ALT (test code=ALT) 46 IUnit/L 12-78 ALKALINE PHOSPHATASE TOTAL (test code=ALKP) 108 IUnit/L 45-117 Note change in reference range due to change in reagent. [id number] 16:46:00* Test Item Value Reference Range Comments LIPASE (test code=LIP) 131 U/L 73.0-393.0 HCG SERUM [id number] 16:46:00* Test Item Value Reference Range Comments HCG SERUM QUAL (test code=HCGQL) NEGATIVE NEGATIVE This HCGQL test is NOT applicable for MALE patients.Check with nurse about probable order error.If Tumor Marker Test needed, nurse should order test "HCGTU"(Test #550.20869) URINALYSIS [id number] 16:43:00* Test Item Value Reference Range Comments UA COLOR (test code=COLU) YELLOW YELLOW UA APPEARANCE (test code=APPU) SLIGHTLY CLOUDY CLEAR UA GLUCOSE DIPSTICK (test code=DGLUU) NEGATIVE mg/dL NEGATIVE UA BILIRUBIN DIPSTICK (test code=BILU) NEGATIVE mg/dL NEGATIVE UA KETONE DIPSTICK (test code=KETU) Negative mg/dL NEGATIVE UA SPECIFIC GRAVITY (test code=SGU) 1.025 1.001-1.035 UA BLOOD DIPSTICK (test code=MARIETTA) Negative NEGATIVE UA PH DIPSTICK (test code=RODOLFO) 6.0 5.0-8.0 UA PROTEIN DIPSTICK (test code=PROU) Negative mg/dL NEGATIVE UA UROBILINIOGEN DIPSTICK (test code=URO) NEGATIVE mg/dL NEGATIVE UA NITRITE DIPSTICK (test code=RACHELLE) NEGATIVE NEGATIVE UA LEUKOCYTE ESTERASE W REFLEX (test code=LEUUR) NEGATIVE NEGATIVE UA WBC (test code=WBCU) 0-5 #/HPF 0-5 UA RBC (test code=RBCU) 3-5 #/HPF 0-5 UA EPITHELIAL CELLS (test code=EPIU) MANY per HPF FEW UA BACTERIA (test code=BACU) FEW #/HPF NONE UA MUCUS (test code=MUCU) FEW #/LPF FEW Urine Source? Clean CatchURINALYSIS [id number] 16:41:00* Test Item Value Reference Range Comments UA COLOR (test code=COLU) YELLOW YELLOW UA APPEARANCE (test code=APPU) SLIGHTLY CLOUDY CLEAR UA GLUCOSE DIPSTICK (test code=DGLUU) NEGATIVE mg/dL NEGATIVE UA BILIRUBIN DIPSTICK (test code=BILU) NEGATIVE mg/dL NEGATIVE UA KETONE DIPSTICK (test code=KETU) Negative mg/dL NEGATIVE UA SPECIFIC GRAVITY (test code=SGU) 1.025 1.001-1.035 UA BLOOD DIPSTICK (test code=MARIETTA) Negative NEGATIVE UA PH DIPSTICK (test code=RODOLFO) 6.0 5.0-8.0 UA PROTEIN DIPSTICK (test code=PROU) Negative mg/dL NEGATIVE UA UROBILINIOGEN DIPSTICK (test code=URO) NEGATIVE mg/dL NEGATIVE UA NITRITE DIPSTICK (test code=RACHELLE) NEGATIVE NEGATIVE UA LEUKOCYTE ESTERASE W REFLEX (test code=LEUUR) NEGATIVE NEGATIVE UA WBC (test code=WBCU) per HPF 0-5 Urine Source? Clean CatchBASIC METABOLIC [id number] 16:35:00* Test Item Value Reference Range Comments SODIUM (test code=NA) 140 mmol/L 136-145 POTASSIUM (test code=K) 3.6 mmol/L 3.5-5.1 CHLORIDE (test code=CL) 108.0 mmol/L 98-107 CARBON DIOXIDE (test code=CO2) mmol/L 21-32 ANION GAP (test code=GAP) 10-20 GLUCOSE (test code=GLU) mg/dL 74-106 BLOOD UREA NITROGEN (test code=BUN) mg/dL 7-18 GLOMERULAR FILTRATION RATE (test code=GFR) mL/min >=60 CREATININE (test code=CREAT) mg/dL 0.55-1.02 BUN/CREATININE RATIO (test code=BUN/CREA) 10-20 CALCIUM (test code=CA) mg/dL 8.5-10.1 HEPATIC FUNCTION [id number] 16:35:00* Test Item Value Reference Range Comments TOTAL PROTEIN (test code=PROT) gram/dL 6.4-8.2 ALBUMIN (test code=ALB) g/dL 3.4-5.0 GLOBULIN (test code=GLOB) gram/dL 2.7-4.2 ALBUMIN/GLOBULIN RATIO (test code=A/G) 0.75-1.50 BILIRUBIN TOTAL (test code=BILT) mg/dL 0.0-1.0 BILIRUBIN DIRECT (test code=BILD) mg/dL 0.0-0.20 SGOT/AST (test code=AST) IUnit/L 15-37 SGPT/ALT (test code=ALT) IUnit/L 12-78 ALKALINE PHOSPHATASE TOTAL (test code=ALKP) IUnit/L 45-117 [id number] 16:35:00* Test Item Value Reference Range Comments LIPASE (test code=LIP) U/L 73.0-393.0 HCG SERUM [id number] 16:35:00* Test Item Value Reference Range Comments HCG SERUM QUAL (test code=HCGQL) NEGATIVE NEGATIVE This HCGQL test is NOT applicable for MALE patients.Check with nurse about probable order error.If Tumor Marker Test needed, nurse should order test "HCGTU"(Test #550.33939) BASIC METABOLIC [id number] 16:34:00* Test Item Value Reference Range Comments SODIUM (test code=NA) 140 mmol/L 136-145 POTASSIUM (test code=K) 3.6 mmol/L 3.5-5.1 CHLORIDE (test code=CL) 108.0 mmol/L 98-107 CARBON DIOXIDE (test code=CO2) mmol/L 21-32 ANION GAP (test code=GAP) 10-20 GLUCOSE (test code=GLU) mg/dL 74-106 BLOOD UREA NITROGEN (test code=BUN) mg/dL 7-18 GLOMERULAR FILTRATION RATE (test code=GFR) mL/min >=60 CREATININE (test code=CREAT) mg/dL 0.55-1.02 BUN/CREATININE RATIO (test code=BUN/CREA) 10-20 CALCIUM (test code=CA) mg/dL 8.5-10.1 HEPATIC FUNCTION [id number] 16:34:00* Test Item Value Reference Range Comments TOTAL PROTEIN (test code=PROT) gram/dL 6.4-8.2 ALBUMIN (test code=ALB) g/dL 3.4-5.0 GLOBULIN (test code=GLOB) gram/dL 2.7-4.2 ALBUMIN/GLOBULIN RATIO (test code=A/G) 0.75-1.50 BILIRUBIN TOTAL (test code=BILT) mg/dL 0.0-1.0 BILIRUBIN DIRECT (test code=BILD) mg/dL 0.0-0.20 SGOT/AST (test code=AST) IUnit/L 15-37 SGPT/ALT (test code=ALT) IUnit/L 12-78 ALKALINE PHOSPHATASE TOTAL (test code=ALKP) IUnit/L 45-117 [id number] 16:34:00* Test Item Value Reference Range Comments LIPASE (test code=LIP) U/L 73.0-393.0 HCG SERUM [id number] 16:34:00* Test Item Value Reference Range Comments HCG SERUM QUAL (test code=HCGQL) NEGATIVE HCG SERUM [id number] 20:01:00* Test Item Value Reference Range Comments HCG SERUM QUAL (test code=HCGQL) NEGATIVE NEGATIVE This HCGQL test is NOT applicable for MALE patients.Check with nurse about probable order error.If Tumor Marker Test needed, nurse should order test "HCGTU"(Test #550.60444) URINALYSIS [id number] 18:17:00* Test Item Value Reference Range Comments UA COLOR (test code=COLU) LIGHT YELLOW YELLOW UA APPEARANCE (test code=APPU) CLEAR CLEAR UA GLUCOSE DIPSTICK (test code=DGLUU) NEGATIVE mg/dL NEGATIVE UA BILIRUBIN DIPSTICK (test code=BILU) NEGATIVE mg/dL NEGATIVE UA KETONE DIPSTICK (test code=KETU) Negative mg/dL NEGATIVE UA SPECIFIC GRAVITY (test code=SGU) 1.016 1.001-1.035 UA BLOOD DIPSTICK (test code=MARIETTA) Negative NEGATIVE UA PH DIPSTICK (test code=RODOLFO) 6.0 5.0-8.0 UA PROTEIN DIPSTICK (test code=PROU) Negative mg/dL NEGATIVE UA UROBILINIOGEN DIPSTICK (test code=URO) NEGATIVE mg/dL NEGATIVE UA NITRITE DIPSTICK (test code=RACHELLE) NEGATIVE NEGATIVE UA LEUKOCYTE ESTERASE W REFLEX (test code=LEUUR) NEGATIVE NEGATIVE UA WBC (test code=WBCU) 0-5 #/HPF 0-5 UA RBC (test code=RBCU) 0-2 #/HPF 0-5 UA EPITHELIAL CELLS (test code=EPIU) FEW per HPF FEW UA MUCUS (test code=MUCU) FEW #/LPF FEW Urine Source? Clean CatchDRUGS OF ABUSE SCREEN [id number] 18:17:00* Test Item Value Reference Range Comments URN COCAINE (test code=COCAURN) NEGATIVE <300 ng/mL URN CANNABINOIDS (test code=CANNABURN) NEGATIVE <50 ng/mL URN AMPHETAMINE (test code=AMPHETURN) NEGATIVE <1000 ng/mL URN BARBITURATE (test code=BARBITURN) NEGATIVE <200 ng/mL URN BENZODIAZEPINE (test code=BENZOURN) NEGATIVE <200 ng/mL URN OPIATES (test code=OPIATURN) NEGATIVE <300 ng/mL URN PHENCYCLIDINE (PCP) (test code=PHENCURN) NEGATIVE <25 ng/mL URN METHADONE (test code=METHAURN) NEGATIVE <300 ng/mL Urine Source? Clean CatchURINALYSIS [id number] 18:06:00* Test Item Value Reference Range Comments UA COLOR (test code=COLU) LIGHT YELLOW YELLOW UA APPEARANCE (test code=APPU) CLEAR CLEAR UA GLUCOSE DIPSTICK (test code=DGLUU) NEGATIVE mg/dL NEGATIVE UA BILIRUBIN DIPSTICK (test code=BILU) NEGATIVE mg/dL NEGATIVE UA KETONE DIPSTICK (test code=KETU) Negative mg/dL NEGATIVE UA SPECIFIC GRAVITY (test code=SGU) 1.016 1.001-1.035 UA BLOOD DIPSTICK (test code=MARIETTA) Negative NEGATIVE UA PH DIPSTICK (test code=RODOLFO) 6.0 5.0-8.0 UA PROTEIN DIPSTICK (test code=PROU) Negative mg/dL NEGATIVE UA UROBILINIOGEN DIPSTICK (test code=URO) NEGATIVE mg/dL NEGATIVE UA NITRITE DIPSTICK (test code=RACHELLE) NEGATIVE NEGATIVE UA LEUKOCYTE ESTERASE W REFLEX (test code=LEUUR) NEGATIVE NEGATIVE UA WBC (test code=WBCU) 0-5 #/HPF 0-5 UA RBC (test code=RBCU) 0-2 #/HPF 0-5 UA EPITHELIAL CELLS (test code=EPIU) FEW per HPF FEW UA MUCUS (test code=MUCU) FEW #/LPF FEW Urine Source? Clean CatchDRUGS OF ABUSE SCREEN [id number] 18:06:00* Test Item Value Reference Range Comments URN COCAINE (test code=COCAURN) <300 ng/mL URN CANNABINOIDS (test code=CANNABURN) <50 ng/mL URN AMPHETAMINE (test code=AMPHETURN) <1000 ng/mL URN BARBITURATE (test code=BARBITURN) <200 ng/mL URN BENZODIAZEPINE (test code=BENZOURN) <200 ng/mL URN OPIATES (test code=OPIATURN) <300 ng/mL URN PHENCYCLIDINE (PCP) (test code=PHENCURN) <25 ng/mL URN METHADONE (test code=METHAURN) <300 ng/mL Urine Source? Clean CatchURINALYSIS [id number] 18:03:00* Test Item Value Reference Range Comments UA COLOR (test code=COLU) LIGHT YELLOW YELLOW UA APPEARANCE (test code=APPU) CLEAR CLEAR UA GLUCOSE DIPSTICK (test code=DGLUU) NEGATIVE mg/dL NEGATIVE UA BILIRUBIN DIPSTICK (test code=BILU) NEGATIVE mg/dL NEGATIVE UA KETONE DIPSTICK (test code=KETU) Negative mg/dL NEGATIVE UA SPECIFIC GRAVITY (test code=SGU) 1.016 1.001-1.035 UA BLOOD DIPSTICK (test code=MARIETTA) Negative NEGATIVE UA PH DIPSTICK (test code=RODOLFO) 6.0 5.0-8.0 UA PROTEIN DIPSTICK (test code=PROU) Negative mg/dL NEGATIVE UA UROBILINIOGEN DIPSTICK (test code=URO) NEGATIVE mg/dL NEGATIVE UA NITRITE DIPSTICK (test code=RACHELLE) NEGATIVE NEGATIVE UA LEUKOCYTE ESTERASE W REFLEX (test code=LEUUR) NEGATIVE NEGATIVE UA WBC (test code=WBCU) per HPF 0-5 Urine Source? Clean CatchDRUGS OF ABUSE SCREEN [id number] 18:03:00* Test Item Value Reference Range Comments URN COCAINE (test code=COCAURN) <300 ng/mL URN CANNABINOIDS (test code=CANNABURN) <50 ng/mL URN AMPHETAMINE (test code=AMPHETURN) <1000 ng/mL URN BARBITURATE (test code=BARBITURN) <200 ng/mL URN BENZODIAZEPINE (test code=BENZOURN) <200 ng/mL URN OPIATES (test code=OPIATURN) <300 ng/mL URN PHENCYCLIDINE (PCP) (test code=PHENCURN) <25 ng/mL URN METHADONE (test code=METHAURN) <300 ng/mL Urine Source? Clean CatchBASIC METABOLIC [id number] 17:22:00* Test Item Value Reference Range Comments SODIUM (test code=NA) 140 mmol/L 136-145 POTASSIUM (test code=K) 3.6 mmol/L 3.5-5.1 CHLORIDE (test code=CL) 109.0 mmol/L 98-107 CARBON DIOXIDE (test code=CO2) 25.0 mmol/L 21-32 ANION GAP (test code=GAP) 9.6 10-20 GLUCOSE (test code=GLU) 119 mg/dL 74-106 BLOOD UREA NITROGEN (test code=BUN) 8 mg/dL 7-18 GLOMERULAR FILTRATION RATE (test code=GFR) > 60 mL/min >=60 Estimated GFR by using Modified MDRD formula.Chronic kidney disease is defined as either kidney damageor GFR <60 mL/min/1.73 m2 for >3 months. CREATININE (test code=CREAT) 0.80 mg/dL 0.55-1.02 Note change in reference range due to change in reagent. BUN/CREATININE RATIO (test code=BUN/CREA) 10.0 10-20 CALCIUM (test code=CA) 9.4 mg/dL 8.5-10.1 HEPATIC FUNCTION [id number] 17:22:00* Test Item Value Reference Range Comments TOTAL PROTEIN (test code=PROT) 8.3 gram/dL 6.4-8.2 ALBUMIN (test code=ALB) 3.9 g/dL 3.4-5.0 GLOBULIN (test code=GLOB) 4.4 gram/dL 2.7-4.2 ALBUMIN/GLOBULIN RATIO (test code=A/G) 0.9 0.75-1.50 BILIRUBIN TOTAL (test code=BILT) 0.20 mg/dL 0.0-1.0 BILIRUBIN DIRECT (test code=BILD) 0.08 mg/dL 0.0-0.20 SGOT/AST (test code=AST) 20 IUnit/L 15-37 SGPT/ALT (test code=ALT) 42 IUnit/L 12-78 ALKALINE PHOSPHATASE TOTAL (test code=ALKP) 112 IUnit/L 45-117 Note change in reference range due to change in reagent. [id number] 17:22:00* Test Item Value Reference Range Comments ALCOHOL (test code=ALC) < 3 mg/dL 0.0-3.0 INTERPRETIVE DATA NOTE: POSITIVE SCREENING RESULTS SHOULD BE CONSIDERED PRESUMPTIVE.WHEN COLLECTED FOR MEDICAL PURPOSES ONLY. SPECIMEN WILL NOTBE COLLECTED BY CHAIN OF CUSTODY.IF A CONFIRMATION OF POSITIVE RESULTS IS DESIRED, ACONFIRMATION TEST MUST BE REQUESTED BY THE PHYSICIAN AT ANADDITIONAL CHARGE TO THE PATIENT. BASIC METABOLIC [id number] 17:15:00* Test Item Value Reference Range Comments SODIUM (test code=NA) 140 mmol/L 136-145 POTASSIUM (test code=K) 3.6 mmol/L 3.5-5.1 CHLORIDE (test code=CL) 109.0 mmol/L 98-107 CARBON DIOXIDE (test code=CO2) mmol/L 21-32 ANION GAP (test code=GAP) 10-20 GLUCOSE (test code=GLU) mg/dL 74-106 BLOOD UREA NITROGEN (test code=BUN) mg/dL 7-18 GLOMERULAR FILTRATION RATE (test code=GFR) mL/min >=60 CREATININE (test code=CREAT) mg/dL 0.55-1.02 BUN/CREATININE RATIO (test code=BUN/CREA) 10-20 CALCIUM (test code=CA) mg/dL 8.5-10.1 HEPATIC FUNCTION [id number] 17:15:00* Test Item Value Reference Range Comments TOTAL PROTEIN (test code=PROT) gram/dL 6.4-8.2 ALBUMIN (test code=ALB) g/dL 3.4-5.0 GLOBULIN (test code=GLOB) gram/dL 2.7-4.2 ALBUMIN/GLOBULIN RATIO (test code=A/G) 0.75-1.50 BILIRUBIN TOTAL (test code=BILT) mg/dL 0.0-1.0 BILIRUBIN DIRECT (test code=BILD) mg/dL 0.0-0.20 SGOT/AST (test code=AST) IUnit/L 15-37 SGPT/ALT (test code=ALT) IUnit/L 12-78 ALKALINE PHOSPHATASE TOTAL (test code=ALKP) IUnit/L 45-117 [id number] 17:15:00* Test Item Value Reference Range Comments ALCOHOL (test code=ALC) mg/dL 0-3 CBC W/O [id number] 17:04:00* Test Item Value Reference Range Comments WHITE BLOOD CELL (test code=WBC) 9.4 K/mm3 4.5-12.5 RED BLOOD CELL (test code=RBC) 4.67 mill/mm3 3.7-5.2 HEMOGLOBIN (test code=HGB) 13.3 gram/dL 11.5-15.5 HEMATOCRIT (test code=HCT) 41.0 % 36.0-46.0 MEAN CELL VOLUME (test code=MCV) 87.8 fL 80-98 MEAN CELL HGB (test code=MCH) 28.5 picogram 27.0-33.0 MEAN CELL HGB CONCETRATION (test code=MCHC) 32.4 gram/dL 33.0-36.0 RED CELL DISTRIBUTION WIDTH (test code=RDW) 13.2 % 11.6-16.2 PLATELET COUNT (test code=PLT) 316 K/mm3 150-450 MEAN PLATELET VOLUME (test code=MPV) 9.5 fL 6.7-11.0 CBC W/O [id number] 17:02:00* Test Item Value Reference Range Comments WHITE BLOOD CELL (test code=WBC) K/mm3 4.5-12.5 RED BLOOD CELL (test code=RBC) mill/mm3 3.7-5.2 HEMOGLOBIN (test code=HGB) 13.3 gram/dL 11.5-15.5 HEMATOCRIT (test code=HCT) 41.0 % 36.0-46.0 MEAN CELL VOLUME (test code=MCV) fL 80-98 MEAN CELL HGB (test code=MCH) picogram 27.0-33.0 MEAN CELL HGB CONCETRATION (test code=MCHC) gram/dL 33.0-36.0 RED CELL DISTRIBUTION WIDTH (test code=RDW) % 11.6-16.2 PLATELET COUNT (test code=PLT) K/mm3 150-450 MEAN PLATELET VOLUME (test code=MPV) fL 6.7-11.0
--- OUTSIDE RECORDS SUMMARY | 2019-03-08 18:45 | XMS REPORT ---
Author Author Admin, [place] Organization [facility] Address [address] [place] [address] Phone Allergies, Adverse Reactions, Alerts Allergy Name Reaction Description Start Date Severity Status Provider No Known Allergies Earline Castillo MA Conditions or Problems Problem Name Problem Code Onset Date Status Entry Date Provider Comment Standard Description Annotate Gastroenteritis, viral, acute 008.8 Active Karel Larson MD Intestinal infection due to other organism, not elsewhere classified Migraine 346.90 Active Karel Larson MD Migraine, unspecified, without mention of intractable migraine, without mention of status migrainosus Medication List Medication Instructions Start Date Stop Date Generic Name NDC Status Provider Patient Instruction No Drug Therapy Prescribed - none known did ask Karel Larson MD Vital Signs Date Name Value Unit Range Description blood pressure, diastolic 79 mm[Hg] BP king blood pressure, systolic 113 mm[Hg] BP sys height E&M 69 [in_us] Bdy height pulse rate E&M 101 /min Heart rate respiratory rate E&M 18 /min Resp rate temperature E&M 98 [degF] Body temperature weight E&M 222 [lb_av] Weight Measured Encounters Date Encounter Provider Code Facility 17:50:04 CDT New Patient Detailed - [id number] Karel Larson MD CPT-04649 [facility]
== END 2019-03-08 19:14 | disposition left against medical advice (07) ==
LOC: ER 18:41
DX: R26.9 Unspecified abnormalities of gait and mobility (principal); Z53.21 Procedure and treatment not carried out due to patient leaving prior to being seen by health care provider

== ENCOUNTER 2020-01-02 21:28 | Emergency (ER) | payer BC, OTHER ==
[~2020-01-02] VITALS: Ht 175.3 cm; Wt 90.7 kg
--- OUTSIDE RECORDS SUMMARY | 2020-01-02 21:32 | XMS REPORT ---
Author Author Admin, [employer] [place] Organization [facility] Address [address] [place] [address] Phone Allergies, Adverse Reactions, Alerts Allergy Name Reaction Description Start Date Severity Status Pr ovider No Known Allergies Judi Castillo MA Conditions or Problems Problem Name Problem Code Onset Date Status Entry Date Provider Comment Standard Description Annotate Gastroenteritis, viral, acute 008.8 Active 03/07 Karel Larson MD Intestinal infection due to other organi sm, not elsewhere classified Migraine 346.90 Active Karel [...] Resp rate temperature E&M 98 [degF] Body temp erature weight E&M 222 [lb_av] Weight Measure d Encounters Date Encounter Provider Code Facility 14:51:09 CDT New Patient Detailed - [id number] Karel basurto MD CPT-47481 [facility] 17:50:04 CDT New Patient Detailed - [id number] Karel basurto MD CPT-14525 [facility]
--- OUTSIDE RECORDS SUMMARY | 2020-01-02 21:32 | XMS REPORT ---
Author Author [facility] t Organization [facility] t Address [address] [place] [address] Phone Unavailable Care Team Providers Care Environmental Health Nurse Name Role Phone NO, PCP PCP Unavailable Payers Payer Name Policy Type Policy Number Effective Date Expiration Date S jelly [employer] [id number] 2015 00:00:00 [facility] Problems This patient has no known problems. Allergies, Adverse Reactions, Alerts Allergy Name Allergy Type Status Severity Reaction(s) Onset Date Inacti ve Date Treating Clinician Comments Source No Known Allergies DA Active U 2018-10-16 00:00:00 [facility] No Known Allergies DA Active U 2018-10-08 00:00:00 [facility] No Known Allergies DA Active U 2017-12-13 00:00:00 [facility] Medications Ordered Medication Name Filled Medication Name Start Date Stop Da te Current Medication? Ordering Clinician Indication Dosage Frequency Signature (SIG) Comments Components Source Acetaminophen With Codeine (Tylenol With Codeine #3 Ta blet) 1 Each Tablet Acetaminophen With Codeine (Tylenol With Codeine #3 Tablet) 1 Each Tablet Yes 2 As Needed [facility] Clonazepam (Klonopin) 0.5 Mg Tablet Clonazepam (Klonopin) 0.5 Mg Tabl et Yes .5 As Needed [facility] Quetiapine Fumarate (Seroquel) 400 Mg Tablet Quetiapin e Fumarate (Seroquel) 400 Mg Tablet Yes 400 Bedtime [facility] Buspirone Hcl 10 Mg Tablet, Buspirone Hcl 10 Mg Tablet, 2016-06-20 00:00:00 No [facility] Lamotrigine (Lamictal) 200 Mg Tablet, Lamotrigine (Lamictal) 200 Mg Tablet, 2016-06-20 00:00:00 No [facility] Procedures This patient has no known procedures. Encounters Start Date/Time End Date/Time Encounter Type Admission Type Attendi RUST Care Department Encounter ID Source 2019-06-05 00:18:00 2019-06-05 00:18:00 Emergency E [facility] [id number] [facility] 2019-03-12 20:55:00 2019-03-12 20:55:00 Outpatient E [facility] MED [id number] [facility] 2019-03-08 18:41:00 2019-03-08 19:14:00 Departed Emergency Room [facility] [id number] [facility] Results Test Description Test Time Test Comments Results Result Comments Source - CT HEAD/BRAIN W/O CONT 2019-03-08 14:11:00 N lanny: KATINA MELGAR [facility] : 1995 Age/S: 23 / F [address] [facility] Unit #: [id number] Loc: DEV [place] [address] Phys: Scar Ferraro [employer] Acct: [id number] Dis Date: Status: REG ER PHONE #: [phone] Exam Date: 03/08/2019 1305 FAX #: [phone] Reason: POSS LOC EXAMS: CPT CODE: [id number] CT HEAD/BRAIN W/O CONT 17559 HISTORY: POSS LOC TECHNIQUE: Noncontrast 2.5 mm [...] by: Ilir collado MD CC: Scar Ferraro [employer] WORK[employer]; Tyree Cleaning DO Technologist:Dulce Maria Horne RT(R),CT CTDI: DLP: Trnscb Date/Time: 03/08/2019 (1410) [email or web address] Orig Print D/T: S: 03/08/2019 (4532) PAGE 1 Signed Report URINALYSIS COMPLETE 2019-03-08 13:12:00 Test Item UA COLOR (test code = COLU) Light-Yellow YELLOW UA APPEARANCE (test code = APPU) CLEAR CLEAR UA GLUCOSE DIPSTICK (test code = DGLUU) NEGATIVE mg/dL NEGATIVE UA BILIRUBIN DIPSTICK (test code = BILU) NEGATIVE mg/dL NEGATIVE UA KETONE DIPSTICK (test code = KETU) NEGATIVE mg/dL NEGATIVE UA SPECIFIC GRAVITY (test code = SGU) 1.013 1.001-1.035 UA BLOOD DIPSTICK (test code = MARIETTA) Negative mg/dL NEGATIVE UA PH DIPSTICK (test code = RODOLFO) 6.0 5.0-8.0 UA PROTEIN DIPSTICK (test code = PROU) NEGATIVE mg/dL NEGATIVE UA UROBILINIOGEN DIPSTICK (test code = URO) Normal mg/dL NEGATIVE UA NITRITE DIPSTICK (test code = RACHELLE) NEGATIVE NEGATIVE UA LEUKOCYTE ESTERASE W REFLEX (test code = LEUUR) NEGATIVE Boyd/uL NEGATIVE UA WBC (test code = WBCU) 0-5 per HPF 0-5 UA RBC (test code = RBCU) 0-2 #/HPF 0-5 UA EPITHELIAL CELLS (test code = EPIU) FEW per HPF FEW UA BACTERIA (test code = BACU) FEW #/HPF NONE A UA MUCUS (test code = MUCU) FEW #/LPF FEW Urine Source? Clean CatchDRUGS OF ABUSE SCREEN [id number] 13:12:00* Test Item Value Reference Range Interpretation Comments URN COCAINE (test code = COCAURN) NEGATIVE <300 ng/mL URN CANNABINOIDS (test code = CANNABURN) NEGATIVE <50 ng/mL URN AMPHETAMINE (test code = AMPHETURN) NEGATIVE <1000 ng/mL URN BARBITURATE (test code = BARBITURN) POSITIVE <200 ng/mL A This test provides only a preliminary test [...] (e.g., employment testing, legaltesting). URN BENZODIAZEPINE (test code = BENZOURN) NEGATIVE <200 ng/mL URN OPIATES (test code = OPIATURN) NEGATIVE <300 ng/mL URN PHENCYCLIDINE (PCP) (test code = PHENCURN) NEGATIVE <25 ng/ mL URN METHADONE (test code = METHAURN) NEGATIVE <300 ng/mL Urine Source? Clean CatchURINALYSIS [id number] 12:58:00* Test Item Value Reference Range Interpretation Comments UA COLOR (test code = COLU) Light-Yellow YELLOW UA APPEARANCE (test code = APPU) CLEAR CLEAR UA GLUCOSE DIPSTICK (test code = DGLUU) NEGATIVE mg/dL NEGATIVE UA BILIRUBIN DIPSTICK (test code = BILU) NEGATIVE mg/dL NEGATIVE UA KETONE DIPSTICK (test code = KETU) NEGATIVE mg/dL NEGATIVE UA SPECIFIC GRAVITY (test code = SGU) 1.013 1.001-1.035 UA BLOOD DIPSTICK (test code = MARIETTA) Negative mg/dL NEGATIVE UA PH DIPSTICK (test code = RODOLFO) 6.0 5.0-8.0 UA PROTEIN DIPSTICK (test code = PROU) NEGATIVE mg/dL NEGATIVE UA UROBILINIOGEN DIPSTICK (test code = URO) Normal mg/dL NEGATIVE UA NITRITE DIPSTICK (test code = RACHELLE) NEGATIVE NEGATIVE UA LEUKOCYTE ESTERASE W REFLEX (test code = LEUUR) NEGATIVE Boyd/uL NEGATIVE UA WBC (test code = WBCU) 0-5 per HPF 0-5 UA RBC (test code = RBCU) 0-2 #/HPF 0-5 UA EPITHELIAL CELLS (test code = EPIU) FEW per HPF FEW UA BACTERIA (test code = BACU) FEW #/HPF NONE A UA MUCUS (test code = MUCU) FEW #/LPF FEW Urine Source? Clean CatchDRUGS OF ABUSE SCREEN [id number] 12:58:00* Test Item Value Reference Range Interpretation Comments URN COCAINE (test code = COCAURN) <300 ng/mL URN CANNABINOIDS (test code = CANNABURN) <50 ng/mL URN AMPHETAMINE (test code = AMPHETURN) <1000 ng/mL URN BARBITURATE (test code = BARBITURN) <200 ng/mL URN BENZODIAZEPINE (test code = BENZOURN) <200 ng/mL URN OPIATES (test code = OPIATURN) <300 ng/mL URN PHENCYCLIDINE (PCP) (test code = PHENCURN) <25 ng/ mL URN METHADONE (test code = METHAURN) <300 ng/mL Urine Source? Clean CatchUR HCG [id number] 12:35:00* Test Item Value Reference Range Interpretation Comments UR HCG QUAL (test code = HCGQLU) NEGATIVE This HCGQL test is NOT applicable for MALE patients.Check with nurse about probable order error.If Tumor Marker Test needed, nurse should order test "HCGTU"(Test #550.13458) BASIC METABOLIC [id number] 12:04:00* Test Item Value Reference Range Interpretation Comments SODIUM (test code = NA) 141 mmol/L 136-145 N POTASSIUM (test code = K) 3.7 mmol/L 3.5-5.1 N CHLORIDE (test code = CL) 111.0 mmol/L 98-107 H CARBON DIOXIDE (test code = CO2) 24.0 mmol/L 21-32 N ANION GAP (test code = GAP) 9.7 10-20 L GLUCOSE (test code = GLU) 83 mg/dL 74-106 N BLOOD UREA NITROGEN (test code = BUN) 8 mg/dL 7-18 N GLOMERULAR FILTRATION RATE (test code = GFR) > 60 mL/min >=60 Estimated GFR by using Modified MDRD formula.Chronic kidney disease is defined as either kidney damageor GFR <60 mL/min/1.73 m2 for >3 months. CREATININE (test code = CREAT) 0.80 mg/dL 0.55-1.02 N Note change in reference range due to change in reagent. BUN/CREATININE RATIO (test code = BUN/CREA) 9.8 10-20 L CALCIUM (test code = CA) 8.8 mg/dL 8.5-10.1 N [id number] 12:04:00* Test Item Value Reference Range Interpretation Comments TROPONIN-I (test code = TROPI) <0.015 ng/mL 0-0.045 N CBC W/O [id number] 12:03:00* Test Item Value Reference Range Interpretation Comments WHITE BLOOD CELL (test code = WBC) 7.6 K/mm3 4.5-12.5 N RED BLOOD CELL (test code = RBC) 4.47 mill/mm3 3.7-5.2 N HEMOGLOBIN (test code = HGB) 12.5 gram/dL 11.5-15.5 N HEMATOCRIT (test code = HCT) 38.3 % 36.0-46.0 N MEAN CELL VOLUME (test code = MCV) 85.7 fL 80-98 N MEAN CELL HGB (test code = MCH) 28.0 picogram 27.0-33.0 N MEAN CELL HGB CONCETRATION (test code = MCHC) 32.6 gram/dL 33.0-36. 0 L RED CELL DISTRIBUTION WIDTH (test code = RDW) 13.9 % 11.6-16. 2 N PLATELET COUNT (test code = PLT) 267 K/mm3 150-450 RESULT VERIFIED BY REPEAT ANALYSIS MEAN PLATELET VOLUME (test code = MPV) 9.7 fL 6.7-11.0 N BASIC METABOLIC [id number] 11:55:00* Test Item Value Reference Range Interpretation Comments SODIUM (test code = NA) 141 mmol/L 136-145 N POTASSIUM (test code = K) 3.7 mmol/L 3.5-5.1 N CHLORIDE (test code = CL) 111.0 mmol/L 98-107 H CARBON DIOXIDE (test code = CO2) mmol/L 21-32 ANION GAP (test code = GAP) 10-20 GLUCOSE (test code = GLU) mg/dL 74-106 BLOOD UREA NITROGEN (test code = BUN) mg/dL 7-18 GLOMERULAR FILTRATION RATE (test code = GFR) mL/min >=60 CREATININE (test code = CREAT) mg/dL 0.55-1.02 BUN/CREATININE RATIO (test code = BUN/CREA) 10-20 CALCIUM (test code = CA) mg/dL 8.5-10.1 [id number] 11:55:00* Test Item Value Reference Range Interpretation Comments TROPONIN-I (test code = TROPI) ng/mL 0-0.045 URINALYSIS [id number] 20:20:00* Test Item Value Reference Range Interpretation Comments UA COLOR (test code = COLU) Light-Yellow YELLOW UA APPEARANCE (test code = APPU) CLEAR CLEAR UA GLUCOSE DIPSTICK (test code = DGLUU) NEGATIVE mg/dL NEGATIVE UA BILIRUBIN DIPSTICK (test code = BILU) NEGATIVE mg/dL NEGATIVE UA KETONE DIPSTICK (test code = KETU) NEGATIVE mg/dL NEGATIVE UA SPECIFIC GRAVITY (test code = SGU) 1.026 1.001-1.035 UA BLOOD DIPSTICK (test code = MARIETTA) Negative mg/dL NEGATIVE UA PH DIPSTICK (test code = RODOLFO) 6.5 5.0-8.0 UA PROTEIN DIPSTICK (test code = PROU) NEGATIVE mg/dL NEGATIVE UA UROBILINIOGEN DIPSTICK (test code = URO) 2.0 (1+) mg/dL NEGATIVE A UA NITRITE DIPSTICK (test code = RACHELLE) NEGATIVE NEGATIVE UA LEUKOCYTE ESTERASE W REFLEX (test code = LEUUR) NEGATIVE Boyd/uL NEGATIVE UA WBC (test code = WBCU) 0-5 per HPF 0-5 UA RBC (test code = RBCU) NONE SEEN #/HPF 0-5 UA EPITHELIAL CELLS (test code = EPIU) FEW per HPF FEW UA BACTERIA (test code = BACU) NONE SEEN #/HPF NONE UA MUCUS (test code = MUCU) FEW #/LPF FEW Urine Source? Clean CatchDRUGS OF ABUSE SCREEN [id number] 20:20:00* Test Item Value Reference Range Interpretation Comments URN COCAINE (test code = COCAURN) NEGATIVE <300 ng/mL URN CANNABINOIDS (test code = CANNABURN) NEGATIVE <50 ng/mL URN AMPHETAMINE (test code = AMPHETURN) NEGATIVE <1000 ng/mL URN BARBITURATE (test code = BARBITURN) POSITIVE <200 ng/mL A This test provides only a preliminary test [...] (e.g., employment testing, legaltesting). URN BENZODIAZEPINE (test code = BENZOURN) NEGATIVE <200 ng/mL URN OPIATES (test code = OPIATURN) NEGATIVE <300 ng/mL URN PHENCYCLIDINE (PCP) (test code = PHENCURN) NEGATIVE <25 ng/ mL URN METHADONE (test code = METHAURN) NEGATIVE <300 ng/mL Urine Source? Clean CatchBASIC METABOLIC [id number] 20:16:00* Test Item Value Reference Range Interpretation Comments SODIUM (test code = NA) 141 mmol/L 136-145 N POTASSIUM (test code = K) 3.7 mmol/L 3.5-5.1 N CHLORIDE (test code = CL) 110.0 mmol/L 98-107 H CARBON DIOXIDE (test code = CO2) 23.0 mmol/L 21-32 N ANION GAP (test code = GAP) 11.7 10-20 N GLUCOSE (test code = GLU) 113 mg/dL 74-106 H BLOOD UREA NITROGEN (test code = BUN) 11 mg/dL 7-18 N GLOMERULAR FILTRATION RATE (test code = GFR) > 60 mL/min >=60 Estimated GFR by using Modified MDRD formula.Chronic kidney disease is defined as either kidney damageor GFR <60 mL/min/1.73 m2 for >3 months. CREATININE (test code = CREAT) 1.00 mg/dL 0.55-1.02 N Note change in reference range due to change in reagent. BUN/CREATININE RATIO (test code = BUN/CREA) 11.6 10-20 N CALCIUM (test code = CA) 9.5 mg/dL 8.5-10.1 N HEPATIC FUNCTION [id number] 20:16:00* Test Item Value Reference Range Interpretation Comments TOTAL PROTEIN (test code = PROT) 8.1 gram/dL 6.4-8.2 N ALBUMIN (test code = ALB) 3.9 g/dL 3.4-5.0 N GLOBULIN (test code = GLOB) 4.2 gram/dL 2.7-4.2 N ALBUMIN/GLOBULIN RATIO (test code = A/G) 0.9 0.75-1.50 N BILIRUBIN TOTAL (test code = BILT) 0.10 mg/dL 0.0-1.0 N BILIRUBIN DIRECT (test code = BILD) 0.10 mg/dL 0.0-0.20 N SGOT/AST (test code = AST) 14 IUnit/L 15-37 L SGPT/ALT (test code = ALT) 29 IUnit/L 12-78 N ALKALINE PHOSPHATASE TOTAL (test code = ALKP) 96 IUnit/L 45-117 N Note change in reference range due to change in reagent. HCG SERUM [id number] 20:16:00* Test Item Value Reference Range Interpretation Comments HCG SERUM QUAL (test code = HCGQL) NEGATIVE NEGATIVE This HCGQL test is NOT applicable for MALE patients.Check with nurse about probable order error.If Tumor Marker Test needed, nurse should order test "HCGTU"(Test #550.04095) BASIC METABOLIC [id number] 20:09:00* Test Item Value Reference Range Interpretation Comments SODIUM (test code = NA) 141 mmol/L 136-145 N POTASSIUM (test code = K) 3.7 mmol/L 3.5-5.1 N CHLORIDE (test code = CL) 110.0 mmol/L 98-107 H CARBON DIOXIDE (test code = CO2) mmol/L 21-32 ANION GAP (test code = GAP) 10-20 GLUCOSE (test code = GLU) mg/dL 74-106 BLOOD UREA NITROGEN (test code = BUN) mg/dL 7-18 GLOMERULAR FILTRATION RATE (test code = GFR) mL/min >=60 CREATININE (test code = CREAT) mg/dL 0.55-1.02 BUN/CREATININE RATIO (test code = BUN/CREA) 10-20 CALCIUM (test code = CA) mg/dL 8.5-10.1 HEPATIC FUNCTION [id number] 20:09:00* Test Item Value Reference Range Interpretation Comments TOTAL PROTEIN (test code = PROT) gram/dL 6.4-8.2 ALBUMIN (test code = ALB) g/dL 3.4-5.0 GLOBULIN (test code = GLOB) gram/dL 2.7-4.2 ALBUMIN/GLOBULIN RATIO (test code = A/G) 0.75-1.50 BILIRUBIN TOTAL (test code = BILT) mg/dL 0.0-1.0 BILIRUBIN DIRECT (test code = BILD) mg/dL 0.0-0.20 SGOT/AST (test code = AST) IUnit/L 15-37 SGPT/ALT (test code = ALT) IUnit/L 12-78 ALKALINE PHOSPHATASE TOTAL (test code = ALKP) IUnit/L 45-117 HCG SERUM [id number] 20:09:00* Test Item Value Reference Range Interpretation Comments HCG SERUM QUAL (test code = HCGQL) NEGATIVE NEGATIVE This HCGQL test is NOT applicable for MALE patients.Check with nurse about probable order error.If Tumor Marker Test needed, nurse should order test "HCGTU"(Test #550.50628) BASIC METABOLIC [id number] 20:06:00* Test Item Value Reference Range Interpretation Comments SODIUM (test code = NA) 141 mmol/L 136-145 N POTASSIUM (test code = K) 3.7 mmol/L 3.5-5.1 N CHLORIDE (test code = CL) 110.0 mmol/L 98-107 H CARBON DIOXIDE (test code = CO2) mmol/L 21-32 ANION GAP (test code = GAP) 10-20 GLUCOSE (test code = GLU) mg/dL 74-106 BLOOD UREA NITROGEN (test code = BUN) mg/dL 7-18 GLOMERULAR FILTRATION RATE (test code = GFR) mL/min >=60 CREATININE (test code = CREAT) mg/dL 0.55-1.02 BUN/CREATININE RATIO (test code = BUN/CREA) 10-20 CALCIUM (test code = CA) mg/dL 8.5-10.1 HEPATIC FUNCTION [id number] 20:06:00* Test Item Value Reference Range Interpretation Comments TOTAL PROTEIN (test code = PROT) gram/dL 6.4-8.2 ALBUMIN (test code = ALB) g/dL 3.4-5.0 GLOBULIN (test code = GLOB) gram/dL 2.7-4.2 ALBUMIN/GLOBULIN RATIO (test code = A/G) 0.75-1.50 BILIRUBIN TOTAL (test code = BILT) mg/dL 0.0-1.0 BILIRUBIN DIRECT (test code = BILD) mg/dL 0.0-0.20 SGOT/AST (test code = AST) IUnit/L 15-37 SGPT/ALT (test code = ALT) IUnit/L 12-78 ALKALINE PHOSPHATASE TOTAL (test code = ALKP) IUnit/L 45-117 HCG SERUM [id number] 20:06:00* Test Item Value Reference Range Interpretation Comments HCG SERUM QUAL (test code = HCGQL) NEGATIVE CBC W/AUTO [id number] 19:49:00* Test Item Value Reference Range Interpretation Comments WHITE BLOOD CELL (test code = WBC) 15.5 K/mm3 4.5-12.5 H RED BLOOD CELL (test code = RBC) 4.47 mill/mm3 3.7-5.2 N HEMOGLOBIN (test code = HGB) 12.6 gram/dL 11.5-15.5 N HEMATOCRIT (test code = HCT) 38.5 % 36.0-46.0 N MEAN CELL VOLUME (test code = MCV) 86.1 fL 80-98 N MEAN CELL HGB (test code = MCH) 28.2 picogram 27.0-33.0 N MEAN CELL HGB CONCETRATION (test code = MCHC) 32.7 gram/dL 33.0-36. 0 L RED CELL DISTRIBUTION WIDTH (test code = RDW) 13.9 % 11.6-16. 2 N RED CELL DISTRIBUTION WIDTH SD (test code = RDW-SD) 43.3 fL 37 .0-51.0 N PLATELET COUNT (test code = PLT) 342 K/mm3 150-450 N MEAN PLATELET VOLUME (test code = MPV) 9.8 fL 6.7-11.0 N NEUTROPHIL % (test code = NT%) 76.8 % 39.0-69.0 H IMMATURE GRANULOCYTE % (test code = IG%) 0.7 % 0.0-5.0 N LYMPHOCYTE % (test code = LY%) 14.5 % 25.0-55.0 L MONOCYTE % (test code = MO%) 7.7 % 0.0-10.0 N EOSINOPHIL % (test code = EO%) 0.1 % 0.0-5.0 N BASOPHIL % (test code = BA%) 0.2 % 0.0-1.0 N NUCLEATED RBC % (test code = NRBC%) 0.0 % 0-0 N NEUTROPHIL # (test code = NT#) 11.89 K/mm3 1.8-7.7 H IMMATURE GRANULOCYTE # (test code = IG#) 0.11 x10 3/uL 0-0.03 H LYMPHOCYTE # (test code = LY#) 2.25 K/mm3 1.0-5.0 N MONOCYTE # (test code = MO#) 1.19 K/mm3 0-0.8 H EOSINOPHIL # (test code = EO#) 0.02 K/mm3 0.0-0.5 N BASOPHIL # (test code = BA#) 0.03 K/mm3 0.0-0.2 N NUCLEATED RBC # (test code = NRBC#) 0.00 K/mm3 0.0-0.1 N URINALYSIS [id number] 19:36:00* Test Item Value Reference Range Interpretation Comments UA COLOR (test code = COLU) Light-Yellow YELLOW UA APPEARANCE (test code = APPU) CLEAR CLEAR UA GLUCOSE DIPSTICK (test code = DGLUU) NEGATIVE mg/dL NEGATIVE UA BILIRUBIN DIPSTICK (test code = BILU) NEGATIVE mg/dL NEGATIVE UA KETONE DIPSTICK (test code = KETU) NEGATIVE mg/dL NEGATIVE UA SPECIFIC GRAVITY (test code = SGU) 1.026 1.001-1.035 UA BLOOD DIPSTICK (test code = MARIETTA) Negative mg/dL NEGATIVE UA PH DIPSTICK (test code = RODOLFO) 6.5 5.0-8.0 UA PROTEIN DIPSTICK (test code = PROU) NEGATIVE mg/dL NEGATIVE UA UROBILINIOGEN DIPSTICK (test code = URO) 2.0 (1+) mg/dL NEGATIVE A UA NITRITE DIPSTICK (test code = RACHELLE) NEGATIVE NEGATIVE UA LEUKOCYTE ESTERASE W REFLEX (test code = LEUUR) NEGATIVE Boyd/uL NEGATIVE UA WBC (test code = WBCU) 0-5 per HPF 0-5 UA RBC (test code = RBCU) NONE SEEN #/HPF 0-5 UA EPITHELIAL CELLS (test code = EPIU) FEW per HPF FEW UA BACTERIA (test code = BACU) NONE SEEN #/HPF NONE UA MUCUS (test code = MUCU) FEW #/LPF FEW Urine Source? Clean CatchDRUGS OF ABUSE SCREEN [id number] 19:36:00* Test Item Value Reference Range Interpretation Comments URN COCAINE (test code = COCAURN) <300 ng/mL URN CANNABINOIDS (test code = CANNABURN) <50 ng/mL URN AMPHETAMINE (test code = AMPHETURN) <1000 ng/mL URN BARBITURATE (test code = BARBITURN) <200 ng/mL URN BENZODIAZEPINE (test code = BENZOURN) <200 ng/mL URN OPIATES (test code = OPIATURN) <300 ng/mL URN PHENCYCLIDINE (PCP) (test code = PHENCURN) <25 ng/ mL URN METHADONE (test code = METHAURN) <300 ng/mL Urine Source? Clean CatchURINALYSIS [id number] 19:34:00* Test Item Value Reference Range Interpretation Comments UA COLOR (test code = COLU) Light-Yellow YELLOW UA APPEARANCE (test code = APPU) CLEAR CLEAR UA GLUCOSE DIPSTICK (test code = DGLUU) NEGATIVE mg/dL NEGATIVE UA BILIRUBIN DIPSTICK (test code = BILU) NEGATIVE mg/dL NEGATIVE UA KETONE DIPSTICK (test code = KETU) NEGATIVE mg/dL NEGATIVE UA SPECIFIC GRAVITY (test code = SGU) 1.026 1.001-1.035 UA BLOOD DIPSTICK (test code = MARIETTA) Negative mg/dL NEGATIVE UA PH DIPSTICK (test code = RODOLFO) 6.5 5.0-8.0 UA PROTEIN DIPSTICK (test code = PROU) NEGATIVE mg/dL NEGATIVE UA UROBILINIOGEN DIPSTICK (test code = URO) 2.0 (1+) mg/dL NEGATIVE A UA NITRITE DIPSTICK (test code = RACHELLE) NEGATIVE NEGATIVE UA LEUKOCYTE ESTERASE W REFLEX (test code = LEUUR) NEGATIVE Boyd/uL NEGATIVE UA WBC (test code = WBCU) per HPF 0-5 UA RBC (test code = RBCU) per HPF 0-5 UA EPITHELIAL CELLS (test code = EPIU) per HPF Few UA BACTERIA (test code = BACU) per HPF NONE Urine Source? Clean CatchDRUGS OF ABUSE SCREEN [id number] 19:34:00* Test Item Value Reference Range Interpretation Comments URN COCAINE (test code = COCAURN) <300 ng/mL URN CANNABINOIDS (test code = CANNABURN) <50 ng/mL URN AMPHETAMINE (test code = AMPHETURN) <1000 ng/mL URN BARBITURATE (test code = BARBITURN) <200 ng/mL URN BENZODIAZEPINE (test code = BENZOURN) <200 ng/mL URN OPIATES (test code = OPIATURN) <300 ng/mL URN PHENCYCLIDINE (PCP) (test code = PHENCURN) <25 ng/ mL URN METHADONE (test code = METHAURN) <300 ng/mL Urine Source? Clean Catch- CT ABD PELVIS [id number] 20:46:00 Name: KATINA MELGAR [facility] : 1995 Age/S: 23 / F [address] [facility] Unit #: [id number] Loc: DEV [place] [address] Phys: Salty Camacho MD Acct: [id number] Di s Date: Status: REG ER PHONE #: Exam Date: 10/16/2018 2030 FAX #: Reason: L flank pain EXAMS: CPT CODE: [id number] CT ABD PELVIS W/CONT [id number] REASON FOR EXAM: L flank pain EXAM ORDER DATE: 10/16/2018 6:19 PM Order ing Moncho: Bill Camacho MD PROCEDURE: - CT [...] Electronically Signed by Moncho Marquez on at 2045 Reported and signed by: León Marquez M.D. CC: Bill Camacho MD Technologist:Jessica Horne RT(R),CT CTDI: DLP: Trnscb Date/Time: 2018 (2045) [email or web address] Orig Print D/T: S: 10/16/2018 (2048 ) CTDI: DLP: PAGE 1 Signed Report - CT CHEST W/[id number] 20:44:00 Name: KATINA MELGAR [facility] : 1995 Age/S: 23 / F [address] [facility] Unit #: [id number] [place]: [place] [address] Phys: Salty Camacho MD Acct: [id number] Di s Date: Status: REG ER PHONE #: Exam Date: 10/16/20182029 FAX #: Reason: L scapular pain EXAMS: CPT CODE: [id number] CT CHEST W/CO NTRAST 24317 REASON FOR EXAM: L scapul ar pain [...] DLP: PAGE 1 Signed Report CBC W/O [id number] 19:53:00* Test Item Value Reference Range Interpretation Comments WHITE BLOOD CELL (test code = WBC) 11.6 K/mm3 4.5-12.5 N RED BLOOD CELL (test code = RBC) 4.21 mill/mm3 3.7-5.2 N HEMOGLOBIN (test code = HGB) 12.0 gram/dL 11.5-15.5 N HEMATOCRIT (test code = HCT) 37.1 % 36.0-46.0 N MEAN CELL VOLUME (test code = MCV) 88.1 fL 80-98 N MEAN CELL HGB (test code = MCH) 28.5 picogram 27.0-33.0 N MEAN CELL HGB CONCETRATION (test code = MCHC) 32.3 gram/dL 33.0-36. 0 L RED CELL DISTRIBUTION WIDTH (test code = RDW) 13.4 % 11.6-16. 2 N PLATELET COUNT (test code = PLT) 292 K/mm3 150-450 N MEAN PLATELET VOLUME (test code = MPV) 10.0 fL 6.7-11.0 N - CT ABD PELVIS W/O [id number] 16:58:00 Name: KATINA MELGAR [facility] : 1995 Age/S: 23 / F [place] Unit #: [id number] Loc: DEV [place] [address] Phys: Bill Camacho MD Acct: [id number] Dis Date: Status: REG ER PHONE #: [phone] Exam Date: 10/16/2018 1647 FAX #: [phone] Reason: R flank pain, hematuria EXAMS: CPT CODE: [id number] CT ABD PELVIS W/O CONT 54001 REASON FOR EXAM: R flank pain, hematuria EXAM ORDER DATE: 10/16/2018 4:07 PM Ordering M.D.: Bill Camacho MD PROCEDURE: - CT [...] Duarte RT(R) CTDI: DLP: Trnscb Date/Time: 10/16/2018 (7418) tBRE Orig Print D/T: S: 10/16/2018 (7109) CTDI: DLP: PAGE 1 Signed Report BASIC METABOLIC [id number] 16:46:00* Test Item Value Reference Range Interpretation Comments SODIUM (test code = NA) 140 mmol/L 136-145 N POTASSIUM (test code = K) 3.6 mmol/L 3.5-5.1 N CHLORIDE (test code = CL) 108.0 mmol/L 98-107 H CARBON DIOXIDE (test code = CO2) 24.0 mmol/L 21-32 N ANION GAP (test code = GAP) 11.6 10-20 N GLUCOSE (test code = GLU) 112 mg/dL 74-106 H BLOOD UREA NITROGEN (test code = BUN) 9 mg/dL 7-18 N GLOMERULAR FILTRATION RATE (test code = GFR) > 60 mL/min >=60 Estimated GFR by using Modified MDRD formula.Chronic kidney disease is defined as either kidney damageor GFR <60 mL/min/1.73 m2 for >3 months. CREATININE (test code = CREAT) 0.90 mg/dL 0.55-1.02 N Note change in reference range due to change in reagent. BUN/CREATININE RATIO (test code = BUN/CREA) 9.6 10-20 L CALCIUM (test code = CA) 8.7 mg/dL 8.5-10.1 N HEPATIC FUNCTION [id number] 16:46:00* Test Item Value Reference Range Interpretation Comments TOTAL PROTEIN (test code = PROT) 8.0 gram/dL 6.4-8.2 N ALBUMIN (test code = ALB) 3.6 g/dL 3.4-5.0 N GLOBULIN (test code = GLOB) 4.4 gram/dL 2.7-4.2 H ALBUMIN/GLOBULIN RATIO (test code = A/G) 0.8 0.75-1.50 N BILIRUBIN TOTAL (test code = BILT) 0.20 mg/dL 0.0-1.0 N BILIRUBIN DIRECT (test code = BILD) 0.08 mg/dL 0.0-0.20 N SGOT/AST (test code = AST) 23 IUnit/L 15-37 N SGPT/ALT (test code = ALT) 46 IUnit/L 12-78 N ALKALINE PHOSPHATASE TOTAL (test code = ALKP) 108 IUnit/L 45-117 N Note change in reference range due to change in reagent. [id number] 16:46:00* Test Item Value Reference Range Interpretation Comments LIPASE (test code = LIP) 131 U/L 73.0-393.0 N HCG SERUM [id number] 16:46:00* Test Item Value Reference Range Interpretation Comments HCG SERUM QUAL (test code = HCGQL) NEGATIVE NEGATIVE This HCGQL test is NOT applicable for MALE patients.Check with nurse about probable order error.If Tumor Marker Test needed, nurse should order test "HCGTU"(Test #550.42036) URINALYSIS [id number] 16:43:00* Test Item Value Reference Range Interpretation Comments UA COLOR (test code = COLU) YELLOW YELLOW UA APPEARANCE (test code = APPU) SLIGHTLY CLOUDY CLEAR A UA GLUCOSE DIPSTICK (test code = DGLUU) NEGATIVE mg/dL NEGATIVE UA BILIRUBIN DIPSTICK (test code = BILU) NEGATIVE mg/dL NEGATIVE UA KETONE DIPSTICK (test code = KETU) Negative mg/dL NEGATIVE UA SPECIFIC GRAVITY (test code = SGU) 1.025 1.001-1.035 UA BLOOD DIPSTICK (test code = [place]) Negative NEGATIVE UA PH DIPSTICK (test code = RODOLFO) 6.0 5.0-8.0 UA PROTEIN DIPSTICK (test code = PROU) Negative mg/dL NEGATIVE UA UROBILINIOGEN DIPSTICK (test code = URO) NEGATIVE mg/dL NEGATIVE UA NITRITE DIPSTICK (test code = RACHELLE) NEGATIVE NEGATIVE UA LEUKOCYTE ESTERASE W REFLEX (test code = LEUUR) NEGATIVE NEG ATIVE UA WBC (test code = WBCU) 0-5 #/HPF 0-5 UA RBC (test code = RBCU) 3-5 #/HPF 0-5 UA EPITHELIAL CELLS (test code = EPIU) MANY per HPF FEW UA BACTERIA (test code = BACU) FEW #/HPF NONE A UA MUCUS (test code = MUCU) FEW #/LPF FEW Urine Source? Clean CatchURINALYSIS [id number] 16:41:00* Test Item Value Reference Range Interpretation Comments UA COLOR (test code = COLU) YELLOW YELLOW UA APPEARANCE (test code = APPU) SLIGHTLY CLOUDY CLEAR A UA GLUCOSE DIPSTICK (test code = DGLUU) NEGATIVE mg/dL NEGATIVE UA BILIRUBIN DIPSTICK (test code = BILU) NEGATIVE mg/dL NEGATIVE UA KETONE DIPSTICK (test code = KETU) Negative mg/dL NEGATIVE UA SPECIFIC GRAVITY (test code = SGU) 1.025 1.001-1.035 UA BLOOD DIPSTICK (test code = [place]) Negative NEGATIVE UA PH DIPSTICK (test code = RODOLFO) 6.0 5.0-8.0 UA PROTEIN DIPSTICK (test code = PROU) Negative mg/dL NEGATIVE UA UROBILINIOGEN DIPSTICK (test code = URO) NEGATIVE mg/dL NEGATIVE UA NITRITE DIPSTICK (test code = RACHELLE) NEGATIVE NEGATIVE UA LEUKOCYTE ESTERASE W REFLEX (test code = LEUUR) NEGATIVE NEG ATIVE UA WBC (test code = WBCU) per HPF 0-5 Urine Source? Clean CatchBASIC METABOLIC [id number] 16:35:00* Test Item Value Reference Range Interpretation Comments SODIUM (test code = NA) 140 mmol/L 136-145 N POTASSIUM (test code = K) 3.6 mmol/L 3.5-5.1 N CHLORIDE (test code = CL) 108.0 mmol/L 98-107 H CARBON DIOXIDE (test code = CO2) mmol/L 21-32 ANION GAP (test code = GAP) 10-20 GLUCOSE (test code = GLU) mg/dL 74-106 BLOOD UREA NITROGEN (test code = BUN) mg/dL 7-18 GLOMERULAR FILTRATION RATE (test code = GFR) mL/min >=60 CREATININE (test code = CREAT) mg/dL 0.55-1.02 BUN/CREATININE RATIO (test code = BUN/CREA) 10-20 CALCIUM (test code = CA) mg/dL 8.5-10.1 HEPATIC FUNCTION [id number] 16:35:00* Test Item Value Reference Range Interpretation Comments TOTAL PROTEIN (test code = PROT) gram/dL 6.4-8.2 ALBUMIN (test code = ALB) g/dL 3.4-5.0 GLOBULIN (test code = GLOB) gram/dL 2.7-4.2 ALBUMIN/GLOBULIN RATIO (test code = A/G) 0.75-1.50 BILIRUBIN TOTAL (test code = BILT) mg/dL 0.0-1.0 BILIRUBIN DIRECT (test code = BILD) mg/dL 0.0-0.20 SGOT/AST (test code = AST) IUnit/L 15-37 SGPT/ALT (test code = ALT) IUnit/L 12-78 ALKALINE PHOSPHATASE TOTAL (test code = ALKP) IUnit/L 45-117 [id number] 16:35:00* Test Item Value Reference Range Interpretation Comments LIPASE (test code = LIP) U/L 73.0-393.0 HCG SERUM [id number] 16:35:00* Test Item Value Reference Range Interpretation Comments HCG SERUM QUAL (test code = HCGQL) NEGATIVE NEGATIVE This HCGQL test is NOT applicable for MALE patients.Check with nurse about probable order error.If Tumor Marker Test needed, nurse should order test "HCGTU"(Test #550.14492) BASIC METABOLIC [id number] 16:34:00* Test Item Value Reference Range Interpretation Comments SODIUM (test code = NA) 140 mmol/L 136-145 N POTASSIUM (test code = K) 3.6 mmol/L 3.5-5.1 N CHLORIDE (test code = CL) 108.0 mmol/L 98-107 H CARBON DIOXIDE (test code = CO2) mmol/L 21-32 ANION GAP (test code = GAP) 10-20 GLUCOSE (test code = GLU) mg/dL 74-106 BLOOD UREA NITROGEN (test code = BUN) mg/dL 7-18 GLOMERULAR FILTRATION RATE (test code = GFR) mL/min >=60 CREATININE (test code = CREAT) mg/dL 0.55-1.02 BUN/CREATININE RATIO (test code = BUN/CREA) 10-20 CALCIUM (test code = CA) mg/dL 8.5-10.1 HEPATIC FUNCTION [id number] 16:34:00* Test Item Value Reference Range Interpretation Comments TOTAL PROTEIN (test code = PROT) gram/dL 6.4-8.2 ALBUMIN (test code = ALB) g/dL 3.4-5.0 GLOBULIN (test code = GLOB) gram/dL 2.7-4.2 ALBUMIN/GLOBULIN RATIO (test code = A/G) 0.75-1.50 BILIRUBIN TOTAL (test code = BILT) mg/dL 0.0-1.0 BILIRUBIN DIRECT (test code = BILD) mg/dL 0.0-0.20 SGOT/AST (test code = AST) IUnit/L 15-37 SGPT/ALT (test code = ALT) IUnit/L 12-78 ALKALINE PHOSPHATASE TOTAL (test code = ALKP) IUnit/L 45-117 [id number] 16:34:00* Test Item Value Reference Range Interpretation Comments LIPASE (test code = LIP) U/L 73.0-393.0 HCG SERUM [id number] 16:34:00* Test Item Value Reference Range Interpretation Comments HCG SERUM QUAL (test code = HCGQL) NEGATIVE HCG SERUM [id number] 20:01:00* Test Item Value Reference Range Interpretation Comments HCG SERUM QUAL (test code = HCGQL) NEGATIVE NEGATIVE This HCGQL test is NOT applicable for MALE patients.Check with nurse about probable order error.If Tumor Marker Test needed, nurse should order test "HCGTU"(Test #550.75182) URINALYSIS [id number] 18:17:00* Test Item Value Reference Range Interpretation Comments UA COLOR (test code = COLU) LIGHT YELLOW YELLOW UA APPEARANCE (test code = APPU) CLEAR CLEAR UA GLUCOSE DIPSTICK (test code = DGLUU) NEGATIVE mg/dL NEGATIVE UA BILIRUBIN DIPSTICK (test code = BILU) NEGATIVE mg/dL NEGATIVE UA KETONE DIPSTICK (test code = KETU) Negative mg/dL NEGATIVE UA SPECIFIC GRAVITY (test code = SGU) 1.016 1.001-1.035 UA BLOOD DIPSTICK (test code = [place]) Negative NEGATIVE UA PH DIPSTICK (test code = RODOLFO) 6.0 5.0-8.0 UA PROTEIN DIPSTICK (test code = PROU) Negative mg/dL NEGATIVE UA UROBILINIOGEN DIPSTICK (test code = URO) NEGATIVE mg/dL NEGATIVE UA NITRITE DIPSTICK (test code = RACHELLE) NEGATIVE NEGATIVE UA LEUKOCYTE ESTERASE W REFLEX (test code = LEUUR) NEGATIVE NEG ATIVE UA WBC (test code = WBCU) 0-5 #/HPF 0-5 UA RBC (test code = RBCU) 0-2 #/HPF 0-5 UA EPITHELIAL CELLS (test code = EPIU) FEW per HPF FEW UA MUCUS (test code = MUCU) FEW #/LPF FEW Urine Source? Clean CatchDRUGS OF ABUSE SCREEN [id number] 18:17:00* Test Item Value Reference Range Interpretation Comments URN COCAINE (test code = COCAURN) NEGATIVE <300 ng/mL URN CANNABINOIDS (test code = CANNABURN) NEGATIVE <50 ng/mL URN AMPHETAMINE (test code = AMPHETURN) NEGATIVE <1000 ng/mL URN BARBITURATE (test code = BARBITURN) NEGATIVE <200 ng/mL URN BENZODIAZEPINE (test code = BENZOURN) NEGATIVE <200 ng/mL URN OPIATES (test code = OPIATURN) NEGATIVE <300 ng/mL URN PHENCYCLIDINE (PCP) (test code = PHENCURN) NEGATIVE <25 ng/ mL URN METHADONE (test code = METHAURN) NEGATIVE <300 ng/mL Urine Source? Clean CatchURINALYSIS [id number] 18:06:00* Test Item Value Reference Range Interpretation Comments UA COLOR (test code = COLU) LIGHT YELLOW YELLOW UA APPEARANCE (test code = APPU) CLEAR CLEAR UA GLUCOSE DIPSTICK (test code = DGLUU) NEGATIVE mg/dL NEGATIVE UA BILIRUBIN DIPSTICK (test code = BILU) NEGATIVE mg/dL NEGATIVE UA KETONE DIPSTICK (test code = KETU) Negative mg/dL NEGATIVE UA SPECIFIC GRAVITY (test code = SGU) 1.016 1.001-1.035 UA BLOOD DIPSTICK (test code = [place]) Negative NEGATIVE UA PH DIPSTICK (test code = RODOLFO) 6.0 5.0-8.0 UA PROTEIN DIPSTICK (test code = PROU) Negative mg/dL NEGATIVE UA UROBILINIOGEN DIPSTICK (test code = URO) NEGATIVE mg/dL NEGATIVE UA NITRITE DIPSTICK (test code = RACHELLE) NEGATIVE NEGATIVE UA LEUKOCYTE ESTERASE W REFLEX (test code = LEUUR) NEGATIVE NEG ATIVE UA WBC (test code = WBCU) 0-5 #/HPF 0-5 UA RBC (test code = RBCU) 0-2 #/HPF 0-5 UA EPITHELIAL CELLS (test code = EPIU) FEW per HPF FEW UA MUCUS (test code = MUCU) FEW #/LPF FEW Urine Source? Clean CatchDRUGS OF ABUSE SCREEN [id number] 18:06:00* Test Item Value Reference Range Interpretation Comments URN COCAINE (test code = COCAURN) <300 ng/mL URN CANNABINOIDS (test code = CANNABURN) <50 ng/mL URN AMPHETAMINE (test code = AMPHETURN) <1000 ng/mL URN BARBITURATE (test code = BARBITURN) <200 ng/mL URN BENZODIAZEPINE (test code = BENZOURN) <200 ng/mL URN OPIATES (test code = OPIATURN) <300 ng/mL URN PHENCYCLIDINE (PCP) (test code = PHENCURN) <25 ng/ mL URN METHADONE (test code = METHAURN) <300 ng/mL Urine Source? Clean CatchURINALYSIS [id number] 18:03:00* Test Item Value Reference Range Interpretation Comments UA COLOR (test code = COLU) LIGHT YELLOW YELLOW UA APPEARANCE (test code = APPU) CLEAR CLEAR UA GLUCOSE DIPSTICK (test code = DGLUU) NEGATIVE mg/dL NEGATIVE UA BILIRUBIN DIPSTICK (test code = BILU) NEGATIVE mg/dL NEGATIVE UA KETONE DIPSTICK (test code = KETU) Negative mg/dL NEGATIVE UA SPECIFIC GRAVITY (test code = SGU) 1.016 1.001-1.035 UA BLOOD DIPSTICK (test code = [place]) Negative NEGATIVE UA PH DIPSTICK (test code = RODOLFO) 6.0 5.0-8.0 UA PROTEIN DIPSTICK (test code = PROU) Negative mg/dL NEGATIVE UA UROBILINIOGEN DIPSTICK (test code = URO) NEGATIVE mg/dL NEGATIVE UA NITRITE DIPSTICK (test code = RACHELLE) NEGATIVE NEGATIVE UA LEUKOCYTE ESTERASE W REFLEX (test code = LEUUR) NEGATIVE NEG ATIVE UA WBC (test code = WBCU) per HPF 0-5 Urine Source? Clean CatchDRUGS OF ABUSE SCREEN [id number] 18:03:00* Test Item Value Reference Range Interpretation Comments URN COCAINE (test code = COCAURN) <300 ng/mL URN CANNABINOIDS (test code = CANNABURN) <50 ng/mL URN AMPHETAMINE (test code = AMPHETURN) <1000 ng/mL URN BARBITURATE (test code = BARBITURN) <200 ng/mL URN BENZODIAZEPINE (test code = BENZOURN) <200 ng/mL URN OPIATES (test code = OPIATURN) <300 ng/mL URN PHENCYCLIDINE (PCP) (test code = PHENCURN) <25 ng/ mL URN METHADONE (test code = METHAURN) <300 ng/mL Urine Source? Clean CatchBASIC METABOLIC [id number] 17:22:00* Test Item Value Reference Range Interpretation Comments SODIUM (test code = NA) 140 mmol/L 136-145 N POTASSIUM (test code = K) 3.6 mmol/L 3.5-5.1 N CHLORIDE (test code = CL) 109.0 mmol/L 98-107 H CARBON DIOXIDE (test code = CO2) 25.0 mmol/L 21-32 N ANION GAP (test code = GAP) 9.6 10-20 L GLUCOSE (test code = GLU) 119 mg/dL 74-106 H BLOOD UREA NITROGEN (test code = BUN) 8 mg/dL 7-18 N GLOMERULAR FILTRATION RATE (test code = GFR) > 60 mL/min >=60 Estimated GFR by using Modified MDRD formula.Chronic kidney disease is defined as either kidney damageor GFR <60 mL/min/1.73 m2 for >3 months. CREATININE (test code = CREAT) 0.80 mg/dL 0.55-1.02 N Note change in reference range due to change in reagent. BUN/CREATININE RATIO (test code = BUN/CREA) 10.0 10-20 N CALCIUM (test code = CA) 9.4 mg/dL 8.5-10.1 N HEPATIC FUNCTION [id number] 17:22:00* Test Item Value Reference Range Interpretation Comments TOTAL PROTEIN (test code = PROT) 8.3 gram/dL 6.4-8.2 H ALBUMIN (test code = ALB) 3.9 g/dL 3.4-5.0 N GLOBULIN (test code = GLOB) 4.4 gram/dL 2.7-4.2 H ALBUMIN/GLOBULIN RATIO (test code = A/G) 0.9 0.75-1.50 N BILIRUBIN TOTAL (test code = BILT) 0.20 mg/dL 0.0-1.0 N BILIRUBIN DIRECT (test code = BILD) 0.08 mg/dL 0.0-0.20 N SGOT/AST (test code = AST) 20 IUnit/L 15-37 N SGPT/ALT (test code = ALT) 42 IUnit/L 12-78 N ALKALINE PHOSPHATASE TOTAL (test code = ALKP) 112 IUnit/L 45-117 N Note change in reference range due to change in reagent. [id number] 17:22:00* Test Item Value Reference Range Interpretation Comments ALCOHOL (test code = ALC) < 3 mg/dL 0.0-3.0 N -- INTERPRETIVE DATA NOTE: POSITIVE SCREENING RESULTS SHOULD BE CONSIDERED PRESUMPTIVE.WHEN COLLECTED FOR MEDICAL PURPOSES ONLY. SPECIMEN WILL NOTBE COLLECTED BY CHAIN OF CUSTODY.IF A CONFIRMATION OF POSITIVE RESULTS IS DESIRED, ACONFIRMATION TEST MUST BE REQUESTED BY THE PHYSICIAN AT ANADDITIONAL CHARGE TO THE PATIENT. BASIC METABOLIC [id number] 17:15:00* Test Item Value Reference Range Interpretation Comments SODIUM (test code = NA) 140 mmol/L 136-145 N POTASSIUM (test code = K) 3.6 mmol/L 3.5-5.1 N CHLORIDE (test code = CL) 109.0 mmol/L 98-107 H CARBON DIOXIDE (test code = CO2) mmol/L 21-32 ANION GAP (test code = GAP) 10-20 GLUCOSE (test code = GLU) mg/dL 74-106 BLOOD UREA NITROGEN (test code = BUN) mg/dL 7-18 GLOMERULAR FILTRATION RATE (test code = GFR) mL/min >=60 CREATININE (test code = CREAT) mg/dL 0.55-1.02 BUN/CREATININE RATIO (test code = BUN/CREA) 10-20 CALCIUM (test code = CA) mg/dL 8.5-10.1 HEPATIC FUNCTION [id number] 17:15:00* Test Item Value Reference Range Interpretation Comments TOTAL PROTEIN (test code = PROT) gram/dL 6.4-8.2 ALBUMIN (test code = ALB) g/dL 3.4-5.0 GLOBULIN (test code = GLOB) gram/dL 2.7-4.2 ALBUMIN/GLOBULIN RATIO (test code = A/G) 0.75-1.50 BILIRUBIN TOTAL (test code = BILT) mg/dL 0.0-1.0 BILIRUBIN DIRECT (test code = BILD) mg/dL 0.0-0.20 SGOT/AST (test code = AST) IUnit/L 15-37 SGPT/ALT (test code = ALT) IUnit/L 12-78 ALKALINE PHOSPHATASE TOTAL (test code = ALKP) IUnit/L 45-117 [id number] 17:15:00* Test Item Value Reference Range Interpretation Comments ALCOHOL (test code = ALC) mg/dL 0-3 CBC W/O [id number] 17:04:00* Test Item Value Reference Range Interpretation Comments WHITE BLOOD CELL (test code = WBC) 9.4 K/mm3 4.5-12.5 N RED BLOOD CELL (test code = RBC) 4.67 mill/mm3 3.7-5.2 N HEMOGLOBIN (test code = HGB) 13.3 gram/dL 11.5-15.5 N HEMATOCRIT (test code = HCT) 41.0 % 36.0-46.0 N MEAN CELL VOLUME (test code = MCV) 87.8 fL 80-98 N MEAN CELL HGB (test code = MCH) 28.5 picogram 27.0-33.0 N MEAN CELL HGB CONCETRATION (test code = MCHC) 32.4 gram/dL 33.0-36. 0 L RED CELL DISTRIBUTION WIDTH (test code = RDW) 13.2 % 11.6-16. 2 N PLATELET COUNT (test code = PLT) 316 K/mm3 150-450 N MEAN PLATELET VOLUME (test code = MPV) 9.5 fL 6.7-11.0 N CBC W/O [id number] 17:02:00* Test Item Value Reference Range Interpretation Comments WHITE BLOOD CELL (test code = WBC) K/mm3 4.5-12.5 RED BLOOD CELL (test code = RBC) mill/mm3 3.7-5.2 HEMOGLOBIN (test code = HGB) 13.3 gram/dL 11.5-15.5 N HEMATOCRIT (test code = HCT) 41.0 % 36.0-46.0 N MEAN CELL VOLUME (test code = MCV) fL 80-98 MEAN CELL HGB (test code = MCH) picogram 27.0-33.0 MEAN CELL HGB CONCETRATION (test code = MCHC) gram/dL 33.0-36. 0 RED CELL DISTRIBUTION WIDTH (test code = RDW) % 11.6-16. 2 PLATELET COUNT (test code = PLT) K/mm3 150-450 MEAN PLATELET VOLUME (test code = MPV) fL 6.7-11.0
--- NOTE | 2020-01-02 22:05 | NUR ---
IN TO SUTURE WOUND
[2020-01-02] MEDS ORDERED: NAPROSYN500 MG PO (22:14)
[2020-01-02] MEDS ORDERED: KEFLEX500 MG PO (22:14)
[2020-01-02 22:28] VITALS: BP 138/79
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
== END 2020-01-02 22:28 | disposition home or self-care (01) ==
LOC: FSED 21:28
DX: S71.111A Laceration without foreign body, right thigh, initial encounter (principal); W26.9XXA Contact with unspecified sharp object(s), initial encounter; Y92.89 Other specified places as the place of occurrence of the external cause; F17.210 Nicotine dependence, cigarettes, uncomplicated; F12.90 Cannabis use, unspecified, uncomplicated
CPT/HCPCS: 99283

== ENCOUNTER 2023-08-30 22:22 | Emergency (ER) | payer OTHER ==
[~2023-08-30] VITALS: Ht 170.2 cm; Wt 96.2 kg
[~2023-08-30 22:22] MED LIST changes: +KEFLEX500 MG PO; +NAPROSYN500 MG PO
[2023-08-30 22:30] VITALS: O2SAT 100
[2023-08-30 23:54] LABS: BILIRUBIN,URINE NEGATIVE (NEGATIVE); CLARITY,URINE CLEAR (CLEAR); COLOR,URINE YELLOW (YELLOW); GLUCOSE, URINE NEGATIVE (NEGATIVE); KETONES,URINE NEGATIVE (NEGATIVE); LEUKOCYTE ESTERASE ,URINE NEGATIVE (NEGATIVE); NITRITE,URINE NEGATIVE (NEGATIVE); PH,URINE 7 (5 - 7); PREGNANCY TEST, URINE NEGATIVE (NEGATIVE); PROTEIN,URINE DIPSTICK NEGATIVE (NEGATIVE); URINE UROBILINOGEN 0.2 mg/dL (0.2 - 1)
[2023-08-31 00:20] LABS: BACTERIA,URINE MANY /HPF; EPITHELIAL CELLS,URINE MODERATE /LPF
== END 2023-08-31 00:35 | disposition left against medical advice (07) ==
LOC: ER 22:29
DX: R31.9 Hematuria, unspecified (principal)
CPT/HCPCS: 81001; 81025

== ENCOUNTER 2024-12-27 03:32 | Emergency (ER) | payer OTHER ==
[~2024-12-27] VITALS: Ht 170.2 cm; Wt 96.2 kg
[2024-12-27 03:44] VITALS: RESP 18; TEMP 98.9
[2024-12-27 04:24] LABS: BASOPHILS # (AUTO) 0.1 (0.0-0.1); BASOPHILS % 0.5 % (0.0-1.0); EOSINOPHILS # (AUTO) 0.1 (0.0-0.4); EOSINOPHILS % 0.4 % (0.0-6.0); HEMOGLOBIN 13.2 g/dL (12.0-16.0); LYMPHOCYTES # (AUTO) 3.1 (1.0-3.2); LYMPHOCYTES % 23.9 % (18.0-39.1); MEAN CORPUSCULAR HEMOGLOBIN 30.1 pg (28-32); MEAN CORPUSCULAR HGB CONC 33.8 g/dL (31-35); MEAN CORPUSCULAR VOLUME 88.8 fL (81-99); MONOCYTES # (AUTO) 0.8 (0.2-0.8); MONOCYTES % 6.4 % (4.4-11.3); NEUTROPHILS % 68.4 % (38.7-80.0); PLATELET COUNT 358 x10e3/uL (140-360); RED BLOOD COUNT 4.39 x10e6/uL (3.6-5.1); RED CELL DISTRIBUTION WIDTH 12.9 % (11.7-14.4); WHITE BLOOD COUNT 13.13 x10e3/uL (4.8-10.8)
[2024-12-27] MEDS: ONDANSETRON HCL INJ 2MG/ML 2ML 2 MG/ML VIAL IV STA (04:30)
[2024-12-27] MEDS: SODIUM CHLORIDE 0.9% 1000ML 1,000 ML IV ONE (04:32)
[2024-12-27 04:35] LABS: CLARITY,URINE CLOUDY (CLEAR); COLOR,URINE YELLOW (YELLOW); LEUKOCYTE ESTERASE ,URINE NEGATIVE (NEGATIVE); PH,URINE 6.5 (5 - 7)
[2024-12-27 04:36] LABS: BILIRUBIN,URINE NEGATIVE (NEGATIVE); GLUCOSE, URINE NEGATIVE (NEGATIVE); KETONES,URINE NEGATIVE (NEGATIVE); NITRITE,URINE NEGATIVE (NEGATIVE); OPIATES SCREEN,URINE NEGATIVE (NEGATIVE); PHENCYCLIDINE SCREEN,URINE NEGATIVE (NEGATIVE); PROTEIN,URINE DIPSTICK 1+ (NEGATIVE); URINE UROBILINOGEN 0.2 mg/dL (0.2 - 1)
[2024-12-27 04:37] LABS: AMPHETAMINES SCREEN,URINE NEGATIVE (NEGATIVE); BENZODIAZEPINES SCREEN,URINE NEGATIVE (NEGATIVE); CANNABINOIDS SCREEN,URINE NEGATIVE (NEGATIVE); COCAINE SCREEN,URINE NEGATIVE (NEGATIVE); METHADONE SCREEN, URINE NEGATIVE (NEGATIVE)
[2024-12-27 04:44] LABS: ANION GAP 13.8 mmol/L (8-16); CALCIUM 9.1 mg/dL (8.4-10.2); CREATININE, SERUM 0.77 mg/dL (0.57-1.11); POTASSIUM 3.8 mmol/L (3.5-5.1)
[2024-12-27 04:48] LABS: BACTERIA,URINE MANY /HPF; EPITHELIAL CELLS,URINE MODERATE /LPF; RBC,URINE >50 /HPF (0-5)
[2024-12-27] MEDS: KETOROLAC TROMETHAMINE 30 MG/ML VIAL IV STA (05:21)
[2024-12-27 05:30] VITALS: PULSE 73
[2024-12-27] MEDS ORDERED: ONDANSETRON ODT4 MG SL (06:00)
[2024-12-27] MEDS ORDERED: KETOROLAC TROME10 MG PO (06:00)
[2024-12-27] MEDS ORDERED: PYRIDIUM200 MG PO (06:00)
[2024-12-27] MEDS ORDERED: CEFDINIR300 MG PO (06:00)
[2024-12-27 06:13] VITALS: BP 118/66; O2SAT 98
== END 2024-12-27 06:10 | disposition home or self-care (01) ==
LOC: ER 03:51
DX: R30.0 Dysuria (principal); N39.0 Urinary tract infection, site not specified; F41.9 Anxiety disorder, unspecified; F32.A Depression, unspecified; Z87.442 Personal history of urinary calculi; F17.210 Nicotine dependence, cigarettes, uncomplicated
CPT/HCPCS: 36415; 74176; 80048; 80307; 81001; 84702; 85025; 99284; J1885; J2405; J7030